=== PATIENT | male | born 1950 | race Caucasian/White ===

== ENCOUNTER 2018-03-10 10:30 | Outpatient (RCR) | payer MEDICARE, OTHER, SELFPAY ==
--- NOTE | 2017-11-14 16:23 | HP.PTEVAL ---
Patient's Visit Information CHELE ACUNA is a 67 year old M referred to Physical Therapy by MARCELINO ANAYA with a diagnosis of Vestibular Schwannoma. Date of Evaluation: 11/14/17 Physical Therapist: BARON ArechigaT, OC - Visit Plan Frequency: 3x /Week Duration: 4-6 Weeks Plan: 3x/week for 4-6 weeks initially for VOR progression at home, walking VOR, balance with narrowing LAURA and eventual foam., pregait and gait exercies focussing on narrow LARUA. - Subjective Subjective: 11/04 14 hour procedure to remove schwannoma which was pressing on the cerebellum.. Was having balance problems and listing to the right prior and having balance problems. Fine motor movements in R hand were deteriorating. Is now one week post op and needs vestibular therapy to retrain. Current symptoms include listing to the right, balance issues whcih require wh walker. R leg feels weaker, No dizzyness symptoms, no visual problems. Sleep is good. Has some muscle soreness behind R ear from surgery. helps with showering, dresses self. Currently sits on couch and watches TV. Walks every hour. HEP includes leg movements aand strength at sink. Cartridge Filler and is off until around Dec 29 ( 6 weeks planned). Used cane occasionally prior to surgery. Hobbies include fishing on boat. - Pain Behind R Ear. Pain Intensity (Out of 10): 0 Pain Intensity Range: 0, 1 Comment: worse with head turn left. - Objective LE adn UE AROM WFL, hip flexion and DF strength slightly less on R but functional. reflexes 2/3 patella and achilles. Sensation WNL to gross ligth touch in LE. Transfers are I, gait requires wh walker and wide LAURA, mod I. Without AD is wide LAURA and unsteady. VOR is challenging for patient seated eye come off target frequently, walking is very unsteady. Incision is posterior R ear, mild scar tissue and pulls with opposite cervical rot otherwise AROM c/s WNL. Steps require railing and tends to just use L but can do reciprocal with one rail. Saccades appear normal. Pursuit with eye horiz is saccadic in movement. Has nystagmus with R gaze. Romberg eo and ec 30 seconds, foam not tested today. - Balance Scores Functional Gait Assessment Score: 14 % Disability: 53.3400 - Goals Goal 1:: FGA 25/30 to diminish fall risk Goal Time Frame: 4-6 Weeks Goal 2:: Walk community without need for AD. Goal Time Frame: 4-6 Weeks Goal 3:: Steps reciprocally without UE usage. Goal Time Frame: 4-6 Weeks Goal 4:: Plan to return to fishing on a boat. Goal Time Frame: 8-12 Weeks - Rehabilitation Potential Physical Therapy Diagnosis: Balance deficits and VOR deficits from schwannoma. Rehabilitation Potential: Fair - Anticipated Interventions Patient/Client Instruction: Educate patient on: Condition, Plan of Care For the Purpose of:: To decrease pain, To improve gait and locomotor functions Therapeutic Exercise to Include: Balance training, Gait and locomotor training, Active ROM Comment: c/s AROM. VOR. Balance For the Purpose of:: To decrease level of supervision to perform tasks, To improve ability of physical actions for home/community/work/leisure Thank you for the opportunity to evaluate your patient. For Medicare and Medicare HMO plans, please review the plan of care and approve it. It will need to be FAXED BACK to us at [phone] for Medicare purposes. Please let me know if there are questions or concerns regarding this plan of care. Physician Signature: Date:
--- NOTE | 2017-12-14 11:58 | HP.PTREVAL ---
MARCELINO ANAYA, It has been my pleasure to treat CHELE ACUNA over the last 10 visits for Vestibular Schwannoma. Please see the progress note below for an update on the physical therapy plan of care! Subjective: Treatment going well, always challenging. No spinning dizzyness. Balance is improving, but not perfect. Does nto use AD at home adn no falls no stumbling. Can do stairs slowly without railing. Uses cane outside in this weather. Going to boat show tomorrow and will take cane, R leg fatigues easy. R leg reacts slower. Feels like more therapy would help. Has gone back to gym at [employer] in [place]. Does machine strength adn dumbbells for upper body with curls and presses. Does dumbell squats also. wants to get back on treadmill jog and uphill walking buit not safe yet. Objective/Function: FGA+11 adn going the right way. Gait is good but LAURA is wide creating inefficient walking pattern with much excess upper body movement. This carries over to the steps. DOING EXCELLENT WITH STILL SOME THINGS TO WORK ON. Plan Plan: 2-3x/week for 3-4 weeks for .. Work on narrowing LAURA with gait, also on steps, work on prgogressive foam exercises, Work on Single leg strength ex including lift and squat and step up/down with coordination. Also please establish safety with [facility] Goals Goal 1:: FGA 25/30 to diminish fall risk Goal Time Frame: 4-6 Weeks Goal Progress: Goal Met Goal 2:: Walk community without need for AD. Goal Time Frame: 4-6 Weeks Goal Progress: Progressing Goal 3:: Steps reciprocally without UE usage. Goal Time Frame: 4-6 Weeks Goal Progress: Progressing Goal 4:: Plan to return to fishing on a boat. Goal Time Frame: 8-12 Weeks Goal Progress: Progressing Goal 5:: Steps and gait with narrow LAURA without VC Goal Time Frame: 4-6 Weeks Goal Progress: Foam stance ec 30 sec Goal Time Frame: 4-6 Weeks Anticipated Interventions Patient/Client Instruction: Educate patient on: Condition, Plan of Care For the Purpose of:: To decrease pain, To improve gait and locomotor functions Therapeutic Exercise to Include: Balance training, Gait and locomotor training, Active ROM Comment: c/s AROM. VOR. Balance For the Purpose of:: To decrease level of supervision to perform tasks, To improve ability of physical actions for home/community/work/leisure Please do not hesitate to contact me at [phone] by phone or if you have questions or concerns regarding this new plan of care! Sincerely, Jef Coelho, DPT, OC
--- NOTE | 2018-01-09 13:01 | HP.PTREVAL_ITS ---
MARCELINO ANAYA, It has been my pleasure to treat CHELE ACUNA over the last 20 visits for Vestibular Schwannoma. Please see the progress note below for an update on the physical therapy plan of care! Subjective: Not needing AD unless on feet alot and then uses a cane. Was on feet at show for 4 hours this weekend and used cane there. Otherwise only with ice. No falls. Does not feel dangerous. Basic aDLs by self OK. Practices steps in morning with without rail but too tired at night. Back to work Dec 29 sitting all day, gets up and moves throughout day, doing full duty and doing well. Worn out initially but doing well now. No pain but R hip can get tired. Balance better now than walking around in boat last August. HEP: [employer] gym 3-4x/week and upper body. Doing foam stance at home with ec. marching and heel to toe walking with . Bosu step ups holding on every 3-4. Objective/Function: Stumbles with turns on steps, still needs UE to descend steps safely, Walking VOR sstill quite the challenge, thick foam stance is hard. Overall, LAURA is narrower with ambuilation but diverts to wide LAURA on steps and with turns. Plan Plan: 2x/week for 4 weeks... Please work on quick 180 degree and 360 degree turns, stoop and recover, VOR walking and steps. Pt to continue HEP of static balance and strengthening at [employer] Goals Goal 1:: FGA to diminish fall risk Goal Time Frame: 4-6 Weeks Goal Progress: Goal Met Goal 2:: Walk community without need for AD. Goal Time Frame: 4-6 Weeks Goal Progress: Goal Met Goal 3:: Steps reciprocally without UE usage. Goal Time Frame: 4-6 Weeks Goal Progress: Progressing Goal 4:: Plan to return to fishing on a boat. Goal Time Frame: 8-12 Weeks Goal Progress: Progressing Goal 5:: Steps and gait with narrow LAURA without VC with head turns and 180 degree turns. Goal Time Frame: 4-6 Weeks Goal Progress: NEW GOAL Goal 6:: FGA to minimize fall risk. Goal Time Frame: 4-6 Weeks Goal Progress: NEW GOAL. Anticipated Interventions Patient/Client Instruction: Educate patient on: Condition, Plan of Care For the Purpose of:: To decrease pain, To improve gait and locomotor functions Therapeutic Exercise to Include: Balance training, Gait and locomotor training, Active ROM Comment: c/s AROM. VOR. Balance For the Purpose of:: To decrease level of supervision to perform tasks, To improve ability of physical actions for home/community/work/leisure Please do not hesitate to contact me at [phone] by phone or Fax: if you have questions or concerns regarding this new plan of care! Sincerely, Jef Coelho, BARONT, OC
--- NOTE | 2018-02-10 12:28 | HP.PTREVAL_ITS ---
MARCELINO ANAYA, It has been my pleasure to treat CHELE ACUNA over the last 28 visits for Vestibular Schwannoma. Please see the progress note below for an update on the physical therapy plan of care! Subjective: Goling the right way. Walking straighter without a wide gait. Turns are easier and safer. Steps are safer. Activities are normal. Walking dogs is limited distance to four blocks, would like to go a mile but gets tired. R LB can ache if walks too far. Hasn't started fishing due to weather. Thinks he could. Walking treadmill and varies elevation, needs to hang on to sides most of time. R LE fine motor is still challenging. Still slow to start. No dizzyness. Walks with peg legs at times though. HEP: regularly with walking VOR, balance ec. Strengthening at [employer] 3x/week. No scheduled f/u with neurologist any time soon. Objective/Function: FGA improving slowly but still one point from my goal. Steps are reciprocal without a rail. R LE still appears slightly functionally weak as he scratches toe on ground with walking 1x today and ecc lowering on steps is harder on R. VOR walking is improving but wobbly. Wide LAURA with gait as default persists but corrects well with VC. OVERALL SLOW IMPROVEMENT. CONTINUED TREATMENT STILL MEDICALLY APPROPRIATE AND NECESSARY FOR PROGRESSING TO IRREGULAR SURFACES, PROGRESSING vor TO MAKE AMBULATING ON BOAT FOR FISHING SAFER AND MORE FUNCTRIONAL STRENGTH PROGRESSION OF R LE. Plan Plan: 1x/week for 4 weeks for VOR walking, outdoor walking, functional carrying bending, lunging strength. Goals Goal 1:: FGA 25/ to diminish fall risk Goal Time Frame: 4-6 Weeks Goal Progress: Goal Met Goal 2:: Walk community without need for AD. Goal Time Frame: 4-6 Weeks Goal Progress: Goal Met Goal 3:: Steps reciprocally without UE usage. Goal Time Frame: 4-6 Weeks Goal Progress: Goal Met Goal 4:: Plan to return to fishing on a boat. Goal Time Frame: 8-12 Weeks Goal Progress: Progressing Goal 5:: Steps and gait with narrow LAURA without VC with head turns and 180 degree turns. Goal Time Frame: 4-6 Weeks Goal Progress: Progressing Goal 6:: FGA to minimize fall risk. Goal Time Frame: 4-6 Weeks Goal Progress: Progressing Anticipated Interventions Patient/Client Instruction: Educate patient on: Condition, Plan of Care For the Purpose of:: To decrease pain, To improve gait and locomotor functions Therapeutic Exercise to Include: Balance training, Gait and locomotor training, Active ROM Comment: c/s AROM. VOR. Balance For the Purpose of:: To decrease level of supervision to perform tasks, To improve ability of physical actions for home/community/work/leisure Please do not hesitate to contact me at [phone] by phone or Fax: if you have questions or concerns regarding this new plan of care! Sincerely, Jef Coelho, DPT, OC
--- NOTE | 2018-03-10 10:50 | HP.PTDCSUM ---
HP - PT D/C Summary It has been my pleasure to treat CHELE ACUNA under orders from MARCELINO ANAYA, for the diagnosis of Vestibular Schwannoma for a total of 32 visit(s). Discharge Date: 03/10/18 Please see the following information for a summary of their discharge status. - Subjective Subjective: Pulled calf muscle on tuesday, went to gym and was sore that afternoon. Balance improving slowly.. May go out on boat tomorrow and is confident that he could. HEP going well. Ready to be done with PT. Nothing scheduled with doctor, will have MRI in March. - Pain Behind R Ear. Pain Intensity (Out of 10): 0 - Overall Improvement % Improvement: 85 - Objective Objective/Function: FGA +1. LAURA still defaults to wide 50% of time but improved from 100% 4 weeks ago. Turns quickly without LOB. Steps are reciprocal and no rail when focussed on narrow LAURA but needs rail if LAURA gets too wide(too much lateral weight shift) Educated pt on this for safety. - Goals Goal 1:: FGA to diminish fall risk Goal Progress: Goal Met Goal 2:: Walk community without need for AD. Goal Progress: Goal Met Goal 3:: Steps reciprocally without UE usage. Goal Progress: Goal Met Goal 4:: Plan to return to fishing on a boat. Goal Progress: tomorrow and confident Goal 5:: Steps and gait with narrow LAURA without VC with head turns and 180 degree turns. Goal Progress: Progressing Goal 6:: FGA to minimize fall risk. Goal Progress: Goal Met - Plan Plan: D/C, pt ready to be done. - D/C Information Discharge Comments: Pt ready to be done and continue on his own. will see doctor next month and call if problems. If there are questions or concerns regarding this patient's physical therapy, please feel free to call me at [phone]. Thank you for the referral of this patient. Sincerely, Jef Coelho, DPT, OC
== END 2018-03-10 19:00 | disposition home or self-care (01) ==
LOC: PT 10:30
PROVIDERS: Family Provider Family Medicine; PCP Family Medicine
DX: D33.3 Benign neoplasm of cranial nerves (principal)
CPT/HCPCS: 97110; 97162; 97530; G8978; G8979

== ENCOUNTER → 2018-06-16 11:10 | Outpatient (CLI) | payer MEDICARE, OTHER, SELFPAY ==
[2018-06-16 12:42] LABS: AST(SGOT) 26 U/L (15-37); Alanine Aminotransfer ALT/SGPT 19 U/L (16-61); Albumin, Serum 4.2 g/dL (3.2-5.0); Alkaline Phosphatase 74 U/L (45-117); Bilirubin, Direct 0.29 mg/dL (0.00-0.30); Cholesterol 139 mg/dL (200); Globulin 3.8 g/dL (2.2-4.2); High Density Lipoprotein 64 mg/dL; Triglycerides 66 mg/dL; Very Low Density Lipoprotein 13 mg/dL (5-40)
== END ==
PROVIDERS: Family Provider Family Medicine; PCP Family Medicine; Visit Provider Internal Medicine Cardiovascular Disease
DX: E78.5 Hyperlipidemia, unspecified (principal); Z79.899 Other long term (current) drug therapy
CPT/HCPCS: 36415; 80061; 80076

== ENCOUNTER → 2018-08-28 06:52 | Outpatient (CLI) | payer MEDICARE, OTHER, SELFPAY ==
--- NOTE | 2018-08-28 09:48 | STRESSREP ---
Stress Test Report Pharmacologic myocardial perfusion stress test. 68-year-old male with a history of coronary artery disease. Stress protocol: Resting EKG demonstrates sinus bradycardia with a rate of 54 bpm normal intervals and noted resting blood pressure is 152/84 mmHg. 0.4 mg regadenoson was infused per usual protocol followed by rapid intravenous and flush injection continuous court recording monitor was performed the maximum heart rate attained was 71 bpm which was 47% maximum predicted heart rate maximum workload was 1 metabolic equivalent. At rest there were no ST or T wave changes noted suggest abnormal flow reserve at peak infusion no ST or T wave changes were noted suggest abnormal flow reserve resting blood pressure 152/84 with a final blood pressure 132/70 mmHg. Myocardial perfusion protocol. 11.4 mCi of technetium 99m sestamibi was injected at rest 0.4 mg regadenoson was infused per usual protocol peak infusion 33.1 mCi of technetium 99m sestamibi was injected stress images were obtained stress and rest images were reconstructed and compared in the short axis vertical long horizontal long axis. Gated images were also obtained next Perfusion SPECT analysis: Review of the stress images demonstrate normal uptake of tracer noted in all areas of myocardium. The resting images similarly demonstrate normal uptake of tracer noted in all areas of myocardium no areas of reversibility are noted suggest ischemia no previous infarct is noted. Gated SPECT analysis: The gated ejection fraction is 51%. Conclusion: Normal pharmacologic myocardial perfusion stress test. Preserved ejection fraction.
== END ==
PROVIDERS: Family Provider Family Medicine; PCP Family Medicine; Referring Provider Internal Medicine Cardiovascular Disease; Visit Provider Internal Medicine Cardiovascular Disease
DX: Z98.61 Coronary angioplasty status (principal)
CPT/HCPCS: 78452; 93017; A9500; A4216; J2785

== ENCOUNTER → 2019-02-01 10:05 | Outpatient (CLI) | payer MEDICARE, OTHER, SELFPAY ==
[2018-07-20 15:42] VITALS: BMI 26.4
[2019-02-01 12:34] LABS: Anion Gap 9 (5-15); BUN 14 mg/dL (7-18); Calcium,Total 8.6 mg/dL (8.5-10.1); Chloride 105 mmol/L (98-107); Creatinine, Serum 0.82 mg/dL (0.70-1.30); EST Glomerular Filtration Rate 98 mL/min (>60); Est Glom Filt Rate - Afr Amer 119 mL/min (>60); Glucose 101 mg/dL (74-106); Potassium 4.7 mmol/L (3.5-5.1); Sodium Level 137 mmol/L (136-145)
== END ==
PROVIDERS: Family Provider Family Medicine; PCP Family Medicine; Referring Provider Family Medicine; Visit Provider Family Medicine
DX: I25.10 Atherosclerotic heart disease of native coronary artery without angina pectoris (principal)
CPT/HCPCS: 36415; 80048

== ENCOUNTER → 2019-07-18 | Outpatient (CLI) | payer MEDICARE, OTHER, SELFPAY ==
[2018-07-20 15:42] VITALS: BMI 26.4
[2019-07-18 10:43] LABS: ALB/GLOB Ratio 1.1 RATIO (0.9-2.4); AST(SGOT) 22 U/L (15-37); Alanine Aminotransfer ALT/SGPT 19 U/L (16-61); Alkaline Phosphatase 69 U/L (45-117); Anion Gap 5 (5-15); BUN 14 mg/dL (7-18); BUN/Creat Ratio 15.6 RATIO (10-20); Calcium,Total 8.6 mg/dL (8.5-10.1); Chloride 107 mmol/L (98-107); Cholesterol 146 mg/dL (200); EST Glomerular Filtration Rate 89 mL/min (>60); Est Glom Filt Rate - Afr Amer 108 mL/min (>60); Globulin 3.5 g/dL (2.2-4.2); Glucose 101 mg/dL (74-106); High Density Lipoprotein 73 mg/dL; Potassium 4.4 mmol/L (3.5-5.1); Protein, Total 7.5 g/dL (6.4-8.2); Sodium Level 139 mmol/L (136-145); Triglycerides 45 mg/dL; Very Low Density Lipoprotein 9 mg/dL (5-40)
== END | disposition home or self-care (01) ==
PROVIDERS: Family Provider Family Medicine; PCP Family Medicine; Referring Provider Family Medicine; Visit Provider Family Medicine
DX: I25.10 Atherosclerotic heart disease of native coronary artery without angina pectoris (principal)
CPT/HCPCS: 36415; 80053; 80061

== ENCOUNTER → 2020-07-29 09:35 | Outpatient (CLI) | payer MEDICARE, OTHER, SELFPAY ==
[2020-07-29 09:13] VITALS: BMI 26.3
[2020-07-29 11:02] LABS: AST(SGOT) 26 U/L (15-37); Alanine Aminotransfer ALT/SGPT 19 U/L (16-61); Albumin, Serum 4.3 g/dL (3.2-5.0); Alkaline Phosphatase 72 U/L (45-117); Bilirubin, Direct 0.29 mg/dL (0.00-0.30); Cholesterol 156 mg/dL (200); Globulin 3.7 g/dL (2.2-4.2); High Density Lipoprotein 64 mg/dL; Triglycerides 74 mg/dL; Very Low Density Lipoprotein 15 mg/dL (5-40)
== END ==
PROVIDERS: PCP Family Medicine; Referring Provider Internal Medicine Cardiovascular Disease; Visit Provider Internal Medicine Cardiovascular Disease
DX: E78.00 Pure hypercholesterolemia, unspecified (principal)
CPT/HCPCS: 36415; 80061; 80076

== ENCOUNTER → 2021-09-01 11:03 | Outpatient (CLI) | payer MEDICARE, OTHER, SELFPAY ==
[2021-09-01 11:56] LABS: AST(SGOT) 23 U/L (15-37); Alanine Aminotransfer ALT/SGPT 22 U/L (16-61); Albumin, Serum 4.3 g/dL (3.2-5.0); Alkaline Phosphatase 66 U/L (45-117); Bilirubin, Direct 0.37 mg/dL (0.00-0.30); Cholesterol 159 mg/dL (200); High Density Lipoprotein 68 mg/dL; Protein, Total 8.3 g/dL (6.4-8.2); Triglycerides 74 mg/dL; Very Low Density Lipoprotein 15 mg/dL (5-40)
== END ==
PROVIDERS: PCP Family Medicine; Referring Provider Internal Medicine Cardiovascular Disease; Visit Provider Internal Medicine Cardiovascular Disease
DX: E78.00 Pure hypercholesterolemia, unspecified (principal)
CPT/HCPCS: 36415; 80061; 80076

== ENCOUNTER → 2022-08-28 | Outpatient (CLI) | payer MEDICARE, OTHER, SELFPAY ==
[2022-08-28 12:16] LABS: AST(SGOT) 26 U/L (15-37); Alanine Aminotransfer ALT/SGPT 24 U/L (16-61); Albumin, Serum 3.9 g/dL (3.2-5.0); Alkaline Phosphatase 65 U/L (45-117); Bilirubin, Direct 0.27 mg/dL (0.00-0.30); Cholesterol 149 mg/dL (200); Globulin 3.7 g/dL (2.2-4.2); High Density Lipoprotein 63 mg/dL; Protein, Total 7.6 g/dL (6.4-8.2); Triglycerides 75 mg/dL; Very Low Density Lipoprotein 15 mg/dL (5-40)
== END | disposition home or self-care (01) ==
PROVIDERS: PCP Family Medicine; Visit Provider Internal Medicine Cardiovascular Disease
DX: E78.00 Pure hypercholesterolemia, unspecified (principal)
CPT/HCPCS: 36415; 80061; 80076

== ENCOUNTER → 2022-09-09 | Outpatient (CLI) | payer MEDICARE, OTHER, SELFPAY ==
--- NOTE | 2022-09-09 06:29 | ECHOD_ITS ---
Reason For Study: CAD/ASHD Procedure This was a 2D Doppler, Color Flow transthoracic echocardiogram. Exam performed in department. DR. Jackson notified of new onset atrial flutter by Pili RAMIREZ. Left Ventricle Normal LV size. Left ventricular systolic function is lower limits of normal. The estimated ejection fraction is 50 %. No regional wall motion abnormalities noted. Right Ventricle Mildly dilated right ventricle. Normal systolic function. Atria The left atrium is mildly enlarged. The right atrium is mildly enlarged. Bubble contrast study negative for right to left interatrial shunt. Mitral Valve Normal mitral valve. Mild (1+) eccentric mitral valve insufficiency. Tricuspid Valve Normal tricuspid valve. Aortic Valve Trisinus/trileaflet aortic valve. Pulmonic Valve Normal pulmonic valve. Great Vessels Normal aortic root. The pulmonary artery is normal size. Normal inferior vena cava. Pericardium/Pleural No pericardial effusion. Medication Performed a rapid injection of agitated mix of 9 cc saline and 1cc air to assess for atrial septal defect. MMode/2D Measurements & Calculations LVIDd: 5.5 cm IVSd: 1.1 cm Ao root diam: 3.5 cm LVIDs: 4.4 cm LVPWd: 1.0 cm RVDd: 4.7 cm FS: 19.9 % LAV(MOD-bp): 94.7 ml LA A4 area: 26.7 cm2 LA dimension(2D): 5.0 cm LAV(MOD-bp) Indexed: 45.5 ml/m2 LAV(MOD-sp2): 92.1 ml LAV(MOD-sp4): 92.0 ml RA A4 area: 24.9 cm2 Time Measurements MV dec time: 0.15 sec Doppler Measurements & Calculations MV E max paco: 63.7 cm/sec PA V2 max: 78.7 cm/sec MV A max paco: 50.2 cm/sec MV dec slope: 423.2 cm/sec2 PA V2 mean: 58.3 cm/sec MV E/A: 1.3 TR max paco: 219.2 cm/sec TR max P.2 mmHg ECHO/Echo Complete Interpretation Summary Normal LV size. Left ventricular systolic function is lower limits of normal. The estimated ejection fraction is 50 %. The left atrium is mildly enlarged. Mildly dilated right ventricle. Ordering Physician: Brennan Jackson Referring Physician: Jef Anthony Performed By: Dulce Maria Cuevas, FLORIAN, RVT
--- NOTE | 2022-09-09 13:19 | STRESSREP ---
Stress Test Report Pharmacologic myocardial perfusion stress test. 72-year-old man with a history of known coronary artery disease previous inferior myocardial infarction. Resting EKG demonstrates atrial flutter with a rate of 74 bpm normal intervals are noted resting blood pressure is 142/70 mmHg. 0.4 mg of regadenoson was infused per usual protocol followed by rapid intravenous saline flush injection continuous EKG monitoring was performed. The maximum heart rate attained was 100 bpm which was 68% of max impacted heart rate the maximum workload was 1 metabolic equivalent. At rest there were no ST or T wave changes noted suggest ischemia and at peak exercise and infusion nonspecific ST changes were noted. The final blood pressure was 142/70. Myocardial perfusion protocol. 11.8 mCi of technetium 99m sestamibi was injected at rest. 0.4 mg of regadenoson was infused per usual protocol. At peak infusion 34.5 mCi of technetium 99m sestamibi was injected stress images were obtained stress and rest images were reconstructed and compared in the short axis vertical long horizontal long axis. Gated images were also obtained to Perfusion SPECT analysis: Review of the stress images demonstrate normal uptake of tracer noted in all areas of myocardium except for the apex with a medium size defect. There is also a defect noted in the basal to mid inferior wall. This pattern is present on the resting images as well as suggesting a previous basal inferior infarct and apical infarct. Minimal wyatt-infarct ischemia is noted. Gated SPECT analysis: The gated ejection fraction is 48%. 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 Atrial flutter.
== END | disposition home or self-care (01) ==
LOC: CVS 06:29
PROVIDERS: PCP Family Medicine; Referring Provider Internal Medicine Cardiovascular Disease; Visit Provider Internal Medicine Cardiovascular Disease
DX: I25.10 Atherosclerotic heart disease of native coronary artery without angina pectoris (principal); Z95.5 Presence of coronary angioplasty implant and graft
CPT/HCPCS: 78452; 93017; 93306; A9500; A4216; J2785

== ENCOUNTER → 2023-05-27 | Outpatient (CLI) | payer MEDICARE, OTHER, SELFPAY ==
--- NOTE | 2023-05-27 10:50 | ECHOD_ITS ---
Reason For Study: ASHD/CAD Procedure This was a 2D Doppler, Color Flow transthoracic echocardiogram. Exam performed in department. Left Ventricle Normal LV size. The left ventricular ejection fraction is 40 %. There is mild to moderate global hypokinesis of the left ventricle. Right Ventricle Normal RV size. Normal systolic function. Atria The left atrium is moderately enlarged. The right atrium is moderately enlarged. Mitral Valve Normal mitral valve. Mild (1+) eccentric mitral valve insufficiency. Tricuspid Valve Normal tricuspid valve. Mild (1+) tricuspid valve insufficiency. Pulmonary artery systolic pressure is 36 mmHg. Aortic Valve Trisinus/trileaflet aortic valve. Mild (1+) eccentric aortic valve insufficiency. Pulmonic Valve Normal pulmonic valve. Great Vessels Normal aortic root. The pulmonary artery is normal size. Normal inferior vena cava. Pericardium/Pleural No pericardial effusion. MMode/2D Measurements & Calculations LVIDd: 6.0 cm IVSd: 1.2 cm Ao root diam: 3.5 cm LVIDs: 5.1 cm LVPWd: 1.0 cm FS: 15.9 % LAV(MOD-bp): 131.1 ml LVAd ap4: 55.0 cm2 LVAd ap2: 49.6 cm2 LAV(MOD-bp) Indexed: 64.7 ml/m2 LVLd ap4: 9.7 cm LVLd ap2: 9.9 cm LAV(MOD-sp2): 147.8 ml EDV(MOD-sp4): 250.7 ml EDV(MOD-sp2): 206.7 ml LAV(MOD-sp4): 107.7 ml EDV(sp4-el): 264.2 ml EDV(sp2-el): 210.1 ml LVAs ap4: 39.9 cm2 LVAs ap2: 37.8 cm2 LVLs ap4: 8.6 cm LVLs ap2: 9.3 cm ESV(MOD-sp4): 152.4 ml ESV(MOD-sp2): 130.9 ml ESV(sp4-el): 157.4 ml ESV(sp2-el): 131.2 ml EF(MOD-sp4): 39.2 % EF(MOD-sp2): 36.7 % EF(sp4-el): 40.4 % SV(MOD-sp4): 98.3 ml SV(MOD-sp2): 75.8 ml SV(sp4-el): 106.8 ml LA dimension(2D): 5.1 cm LA A4 area: 29.5 cm2 RA A4 area: 28.0 cm2 Time Measurements MV dec time: 0.23 sec Doppler Measurements & Calculations MV E max david: 79.2 cm/sec Lat Peak E' David: 10.2 cm/sec Med Peak E' David: 4.2 cm/sec MV A max david: 35.9 cm/sec E/E' lat: 7.8 E/E' med: 18.9 MV E/A: 2.2 MV V2 max: 74.0 cm/sec MV dec slope: 340.4 cm/sec2 Ao V2 max: 125.7 cm/sec MV max P.2 mmHg Ao max P.3 mmHg MV V2 mean: 44.3 cm/sec Ao V2 mean: 87.3 cm/sec MV mean P.89 mmHg Ao mean P.5 mmHg MV V2 VTI: 24.3 cm Ao V2 VTI: 29.2 cm AV (velocity ratio): 0.70 AI max david: 411.3 cm/sec LV V1 max: 98.1 cm/sec MR max david: 512.8 cm/sec AI max P.7 mmHg LV V1 max P.8 mmHg MR max P.2 mmHg AI dec slope: 240.9 cm/sec2 LV V1 mean P.1 mmHg MR mean david: 412.3 cm/sec AI P1/2t: 500.1 msec LV V1 mean: 69.2 cm/sec MR mean P.4 mmHg LV V1 VTI: 20.4 cm MR VTI: 189.9 cm TR max david: 285.3 cm/sec TR max P.6 mmHg ECHO/Echo Complete Interpretation Summary Normal LV size. The left ventricular ejection fraction is 40 %. There is mild to moderate global hypokinesis of the left ventricle. Mild (1+) eccentric mitral valve insufficiency. Pulmonary artery systolic pressure is 36 mmHg. Mild (1+) eccentric aortic valve insufficiency. Compared to previous study, the left ventricular systolic function has worsened .. Ordering Physician: Brennan Jackson Referring Physician: Jef Anthony Performed By: Dulce Maria Cuevas, FLORIAN, RVT
== END | disposition home or self-care (01) ==
LOC: CVS 10:46
PROVIDERS: PCP Family Medicine; Referring Provider Internal Medicine Cardiovascular Disease; Visit Provider Internal Medicine Cardiovascular Disease
DX: I48.92 Unspecified atrial flutter (principal); I25.10 Atherosclerotic heart disease of native coronary artery without angina pectoris
CPT/HCPCS: 93225; 93226; 93306

== ENCOUNTER → 2023-06-13 | Outpatient (CLI) | payer MEDICARE, OTHER, SELFPAY ==
--- NOTE | 2023-06-13 10:19 | RAD_ITS ---
INDICATION: left heart cath EXAMINATION/TECHNIQUE: X-RAY - XR Chest 2 Views COMPARISON: None FINDINGS: LINES/DEVICES: None. LUNGS: No focal consolidations are noted. There is mild prominence of the lung interstitium diffusely. There is a small left pleural effusion. MEDIASTINUM AND CARDIOVASCULAR STRUCTURES: Cardiac silhouette not enlarged. Central airways and mediastinal contour are unremarkable. BONES AND SOFT TISSUES: Unremarkable. RAD/Chest PA and Lateral IMPRESSION: Mildly prominent interstitial lung markings without focal consolidation. Small left pleural effusion. Electronically Signed: Prudencio Luciano, at 10:43 EDT ,
== END | disposition home or self-care (01) ==
LOC: RAD 10:19
PROVIDERS: PCP Family Medicine; Referring Provider Internal Medicine Cardiovascular Disease; Visit Provider Internal Medicine Cardiovascular Disease
DX: I25.10 Atherosclerotic heart disease of native coronary artery without angina pectoris (principal)
CPT/HCPCS: 71046

== ENCOUNTER → 2023-06-13 | Day surgery (SDC) | payer MEDICARE, OTHER, SELFPAY ==
--- NOTE | 2023-06-03 15:33 | PCM.HP.BLA ---
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 He has a history of previous inferior myocardial infarction with angioplasty and stenting of the right coronary artery. He did have residual disease noted in the left anterior descending artery and circumflex artery with a significant calcification. As you know he underwent recent posterior fossa brain tumor in October 2017 successfully with no major problems. He underwent stress testing in 2018 with no evidence of ischemia. His last echocardiogram was in 2012 demonstrating an ejection fraction of 65%. He did undergo a routine stress test after his last OV and was noted to have paroxysmal atrial flutter. His EF at that time was 50%. He was started on Eliquis. He was not aware of this and has not had any recurrence that he is aware of. He does not have any chest discomfort/heaviness/tightness. His exercise tolerance is stable for his age. He does not have any worsening symptoms of shortness of breath. He denies any PND. He does not have any orthopnea. He does not have any symptoms of congestive heart failure. He does not have any palpitations that he is aware of. He does not have any lightheadedness or dizziness. He does not have any near-syncope or syncope. He does not have any lower extremity edema. He does not have any symptoms of claudication. 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) Surgical History History of brain surgery (10/2017) History of coronary artery stent placement (09/28/12) Family History Father CAD (coronary artery disease)Mother CAD (coronary artery disease) Social History Smoking Status: Former smoker how long ago did patient quit smokin alcohol intake: current alcohol intake frequency: a few times a week substance use type: does not use caffeine: Yes Type: coffee Number of servings: 1 ROS Const Const: Positive for fatigue (Increased over the last year); Negative for weakness, headache(s), frequent falls, difficulty sleeping or excessive sweating Eyes Eyes: Negative for loss of peripheral vision, transient loss of vision, blurry vision, double vision or tunnel vision ENT ENT: Negative for headache(s), dizziness, Nosebleed/epistaxis or balance problems Cardio Chest Pain: No Palpitations: No Edema: None Muscle aches with walking: None Resp Respiratory: Negative for SOB with activity, SOB at rest, SOB orthopnea\SOB lying down, Cough or paroxysmal nocturnal dyspnea GI GI: Negative nausea, vomiting, heartburn or black,tarry stools : Negative for hematuria Musc Musc: Negative for muscle aches/ myalgia, muscle weakness, joint pain or balance problems Skin Skin: Negative non-healing lesions, rash or unusual bruising Neuro Neuro: Negative for dizziness, lightheadedness, near syncope, syncope, frequent falls, headache(s), weakness, blurry vision, double vision or lack of coordination Gibran Hematologic/Lymphatic: Negative for easy bleeding or easy bruising Endo Endo: Positive for fatigue (Increased over the last year); Negative for excessive sweating or increased thirst/drinking Psych Psych: Negative for anxiety or depression Allergy Allergy/Immunology: Negative for hives and Negative for rash Cardiology Exam Const Appearance: cooperative, healthy appearing, comfortable, no acute distress and well developed Orientation: alert, awake and oriented x3 Head Head: normal to inspection Ears: hearing grossly normal bilaterally Nose: external nose normal Face and Sinus: face symmetric Mouth: oral mucosae normal, lip normal and moist mucous membranes Eyes General: appearance normal, both eyes and all related structures Eyelids: eyelids normal Conjunctivae: conjunctivae normal Pupils: PERRL EOM: EOM intact bilaterally Neck Neck: normal visual inspection and trachea midline; Negative no JVD Carotids: Negative bruit Chest Chest inspection: normal inspection of the chest Auscultation: Bilateral: Clear to Auscultation Cardio Palpation: normal PMI Rate: regular rate Rhythm: regular rhythm Heart sounds: S1 normal and S2 normal; Negative rub, gallop or murmur GI GI: soft, no hepatosplenomegaly and bowel sounds present Neuro General: patient alert, patient awake, patient oriented x3 and CN's II-XI intact bilaterally Extremities Pulses: Normal: Right Posterior Tibial Pulse, Left Posterior Tibial Pulse, Right Radial Pulse and Left Radial Pulse Lower Extremity Edema: None: Bilateral Psych Psychological: normal affect Supplemental Info Supplemental Information Echocardiogram 05/27/2023: Interpretation Summary Normal LV size. The left ventricular ejection fraction is 40 %. There is mild to moderate global hypokinesis of the left ventricle. Mild (1+) eccentric mitral valve insufficiency. Pulmonary artery systolic pressure is 36 mmHg. Mild (1+) eccentric aortic valve insufficiency. Compared to previous study, the left ventricular systolic function has worsened. Echocardiogram 08/2022: Normal LV size. Left ventricular systolic function is lower limits of normal. The estimated ejection fraction is 50 %. The left atrium is mildly enlarged. Mildly dilated right ventricle. Pharmacologic myocardial perfusion stress test 08/2022: Perfusion SPECT analysis: Review of the stress images demonstrate normal uptake of tracer noted in all areas of myocardium except for the apex with a medium size defect.? There is also a defect noted in the basal to mid inferior wall.? This pattern is present on the resting images as well as suggesting a previous basal inferior infarct and apical infarct.? Minimal wyatt-infarct ischemia is noted. Gated SPECT analysis: The gated ejection fraction is 48%. 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 Atrial flutter. Pharmacologic myocardial perfusion stress test 08/28/2018 Perfusion SPECT analysis: Review of the stress images demonstrate normal uptake of tracer noted in all areas of myocardium.? The resting images similarly demonstrate normal uptake of tracer noted in all areas of myocardium no areas of reversibility are noted suggest ischemia no previous infarct is noted. Gated SPECT analysis: The gated ejection fraction is 51%. Conclusion: Normal pharmacologic myocardial perfusion stress test. Preserved ejection fraction.? Assessment and Plan Assessment and Plan (1) New onset atrial flutter: Status: Acute Plan: He did have atrial flutter but it appears that he is back in sinus rhythm at this time. His EKG from 05/17/2023 demonstrated sinus rhythm with a rate of 62 bpm and occasional ectopic ventricular beats. His most recent echocardiogram demonstrated a decreased ejection fraction of 40%. His most recent event monitor demonstrated arrhythmias including nonsustained VT and SVT. Will proceed with a cardiac catheterization to further assess this. Depending on results, further recommendations will be made. (2) History of coronary artery stent placement: Status: Resolved Comment: [id number] RCA w/ 4 x 20 mm Integrity Stent and PRAVIN-Distal RCA w/ 3.5 x 16 mm Integrity Stent 09/28/2012 Plan: He does have a history of coronary artery disease status post previous angioplasty and stenting. He did undergo stress testing as you remember any August 2022 where there was evidence of previous basal inferoapical infarct and mild cardiomyopathy. His most recent echocardiogram demonstrated a decreased ejection fraction of 40%. His most recent event monitor demonstrated arrhythmias including nonsustained VT and SVT. Will proceed with a cardiac catheterization to further assess this. Depending on results, further recommendations will be made.
[2023-06-13 10:57] LABS: Absolute Lymphocyte Count 1.58 X10^3/uL (0.83-4.51); Absolute Neutrophil Count 7.1 X10^3/uL (2.0-7.7); Basophil# 0.07 X10^3/uL; Basophil% 0.7 % (0-1); Eosinophil# 0.52 X10^3/uL; Eosinophils% 4.9 % (0-5); Hematocrit 35.6 % (40-54); Lymphocyte # 1.58 X10^3/ul (0.83-4.51); Mean Corp Hgb Conc 30.9 g/dL (32-36); Mean Corpuscular Hgb 29.3 pg (27.0-32.0); Mean Corpuscular Volume 94.7 fL (80-94); Mean Platelet Vol. 11.8 fl (6.2-12.0); Monocyte# 1.21 X10^3/uL; Monocyte% 11.5 % (0-10); NRBC Flagged by Analyzer 0 % (0-5); Neutrophil # 7.12 X10^3/uL (2.7-7.7); Neutrophil % 67.3 % (47-70); Platelet Count 408 K/mm3 (150-450); RBC Distribution Width CV 14.8 % (11.6-14.6); RBC Distribution Width SD 51.2 fl (35.1-43.9); Red Blood Count 3.76 M/mm3 (4.6-6.2); White Blood Count 10.6 K/mm3 (4.4-11.0)
[2023-06-13 11:02] LABS: International Normalized Ratio 1.5
[2023-06-13 11:03] LABS: Partial Thromboplast Time 42.7 Seconds (24.1-36.2)
[2023-06-13 11:16] LABS: Anion Gap 5 (5-15); BUN 43 mg/dL (7-18); BUN/Creat Ratio 11.1 RATIO (10-20); Calcium,Total 8.2 mg/dL (8.5-10.1); Chloride 111 mmol/L (98-107); Creatinine, Serum 3.87 mg/dL (0.70-1.30); EST Glomerular Filtration Rate 16 mL/min (>60); Est Glom Filt Rate - Afr Amer 20 mL/min (>60); Glucose 99 mg/dL (74-106); Potassium 4.9 mmol/L (3.5-5.1); Sodium Level 139 mmol/L (136-145)
--- OUTSIDE RECORDS SUMMARY | 2023-07-12 12:21 | XMS RPT_ITS | CCD ---
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 Automatic Name Role Phone Arline RAMIREZ, Cathy Perez Unavailable Unavailable AnthonyRimmaJuana Y Unavailable Medications Completed/Discontinued Medications Medication Drug Class(es) Dates Sig (Normalized) Sig (Original) aspirin 81 mg oral tablet (4 sources) Nonsteroidal Anti-inflammatory Drug Start: 10-13-2012 take 1 tablet by mouth once daily ASPIRIN 81 MG TABS One tablet by mouth daily ASPIRIN [id number] Brennan Jackson MD Problems Active Problems Problem Classification Problem Date Documented Da te Episodic/Chronic Acute myocardial infarction (2 sources) 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; Translations: [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] Onset: 10-10-2012 10-10-2012 Chronic Cardiac dysrhythmias (2 sources) Ventricular premature beats; Translations: [Ventricular premature depolarization] Onset: 10-02-2012 10-02-2012 Chronic Coronary atherosclerosis and other heart disease (4 sources) Coronary arteriosclerosis; Translations: [Atherosclerotic heart disease of [place] coronary artery without angina pectoris] Onset: 10-10-2012 10-10-2012 Chronic Disorders of lipid metabolism (6 sources) Hyperlipidemia; Translations: [Hyperlipidemia, unspecified] Onset: 10-10-2012 Resolved: 05-26-2015 05-26-2015 Chronic Other circulatory disease (2 sources) Peripheral arterial occlusive disease; Translations: [Other disorders of arteries, arterioles and capillaries in diseases classified elsewhere] Onset: 10-02-2015 10-02-2015 Chronic Unclassified (2 sources) History of clinical finding in subject; Translations: [Personal history of nicotine dependence] Onset: 10-02-2015 10-02-2015 Unclassified (2 sources) Percutaneous transluminal coronary angioplasty ; Translations: [Coronary angioplasty status] Onset: 10-10-2012 10-10-2012 Unclassified (2 sources) Preoperative cardiovascular examination ; Translations: [Encounter for preprocedural cardiovascular examination] Onset: 10-13-2017 10-13-2017 Past or Other Problems Problem Classification Problem Date Documented Da te Episodic/Chronic Other aftercare (2 sources) Other intermodal dispatcher (current) drug therapy; Translations: [Other usp (current) drug therapy] Onset: 10-25-2012 05-26-2015 Episodic Unclassified (2 sources) Long-term drug therapy; Translations: [Long-term (current) use of other medications] Onset: 10-25-2012 10-25-2012 Unclassified (4 sources) Screening for disorder ; Translations: [Encounter for screening for other disorder] Onset: 10-02-2015 Resolved: 11-04-2016 10-02-2015 Results Test Name Value Interpretation Reference Range Facil ity Vital Signs Date Time Vital Sign Value Performing Clinician Maile philippe 10-13-2017 09:57-0500 BMI (Body Mass Index) 25.85 kg/m2 [facility] Work Phone: 10-13-2017 09:57-0500 BP Diastolic 60 mm[Hg] [facility] Work Phone: 10-13-2017 09:57-0500 BP Systolic 120 mm[Hg] [facility] Work Phone: 10-13-2017 09:57-0500 Height 182.88 cm [facility] Work Phone: 10-13-2017 09:57-0500 Pulse (Heart Rate) 60 /min [facility] Work Phone: 10-13-2017 09:57-0500 Respiratory Rate 20 /min [facility] Work Phone: 10-13-2017 09:57-0500 Weight 86.46 kg [facility] Work Phone: 11-04-2016 15:06-0500 BSA (Body Surface Area) 2.07 m2 [facility] Work Phone: Procedures Date Procedure Procedure Detail Performing Clinician Start: 10-13-2017 End: 10-13-2017 Ecg routine ecg w/least 12 lds w/i&r Brennan Jackson MD Start: 05-02-2017 End: 05-02-2017 *Hepatic Function Panel Joey Leonard Start: 05-02-2017 End: 05-02-2017 Lipid 1996 panel - Serum or Plasma Brennan Jackson MD Start: 11-04-2016 End: 11-04-2016 XOCHITL Jackson MD Start: 11-04-2016 End: 11-04-2016 Follow Up Appt 6 months Joey Leonard Start: 10-04-2016 End: 11-05-2016 *Hepatic Function Panel Joey Leonard Start: 10-04-2016 End: 11-05-2016 Lipid 1996 panel - Serum or Plasma Brennan Jackson MD Start: 04-06-2016 End: 04-06-2016 XOCHITL Jackson MD Start: 04-06-2016 End: 04-06-2016 Follow Up Appt 6 months Joey Leonard Start: 03-18-2016 End: 04-05-2016 *Hepatic Function Panel Joey Leonard Start: 03-18-2016 End: 04-05-2016 Lipid 1996 panel - Serum or Plasma Brennan Jackson MD Start: 09-18-2015 End: 10-09-2015 Carotid duplex Brennan Jackson MD Start: 09-18-2015 End: 09-18-2015 XOCHITL Jackson MD Start: 09-18-2015 End: 09-19-2015 Documentation of current medications Brennan Jackson MD Start: 09-18-2015 End: 09-18-2015 Follow Up Appt 6 months Joey Leonard Start: 09-18-2015 End: 10-09-2015 Us abdominal real time w/image limited Brennan Jackson MD Start: 09-17-2015 End: 09-17-2015 *Hepatic Function Panel Joey Leonard Start: 09-17-2015 End: 09-17-2015 Lipid 1996 panel - Serum or Plasma Brennan Jackson MD Start: 03-18-2015 End: 09-17-2015 *Hepatic Function Panel Joey Leonard Start: 03-18-2015 End: 03-18-2015 ANESTHESIOLOGY RESIDENT Brennan Jackson MD Start: 03-18-2015 End: 03-18-2015 Follow Up Appt 6 months Joey Leonard Start: 03-18-2015 End: 09-17-2015 Lipid 1996 panel - Serum or Plasma Brennan Jackson MD Start: 02-26-2015 End: 03-18-2015 *Hepatic Function Panel Joey Leonard Start: 02-26-2015 End: 03-18-2015 Lipid 1996 panel - Serum or Plasma Brennan Jackson MD Start: 08-30-2014 End: 08-30-2014 *BMP Brennan Jackson MD Start: 08-30-2014 End: 08-30-2014 XOCHITL Jackson MD Start: 08-30-2014 End: 08-30-2014 Follow Up Appt 6 months Joey Leonard Start: 08-30-2014 End: 09-23-2014 Nuclear stress test -exercise Brennan Montano MD Start: 07-29-2014 End: 08-28-2014 *Hepatic Function Panel Ángela Anthony MA Start: 07-29-2014 End: 08-28-2014 Lipid 1996 panel - Serum or Plasma Ángela Anthony MA Start: 04-03-2014 End: 08-30-2014 *BMP Joanne Dumont PA-C Work Phone: Start: 03-12-2014 End: 03-12-2014 XOCHITL Jackson MD Start: 03-12-2014 End: 03-12-2014 Follow Up Appt 6 months Joey Leonard Start: 02-28-2014 End: 03-07-2014 *BMP Brennan Jackson MD Start: 02-28-2014 End: 03-07-2014 Thyrotropin [Units/volume] in Serum or Plasma Brennan Jackson MD Start: 01-26-2014 End: 02-16-2014 *Hepatic Function Panel Joey Leonard Start: 01-26-2014 End: 02-16-2014 Lipid 1996 panel - Serum or Plasma Ángela Anthony MA Start: 08-07-2013 End: 08-07-2013 XOCHITL Jackson MD Start: 08-07-2013 End: 08-07-2013 Follow Up Appt 6 months Joey Leonard Start: 07-29-2013 End: 08-06-2013 *Hepatic Function Panel Joey Leonard Start: 07-29-2013 End: 08-06-2013 Lipid 1996 panel - Serum or Plasma Brennan Jackson MD Start: 03-28-2013 End: 08-06-2013 *Hepatic Function Panel Joey Leonard Start: 03-28-2013 End: 08-06-2013 Lipid 1996 panel - Serum or Plasma Brennan Jackson MD Start: 02-28-2013 End: 03-15-2014 Thyroxine (T4) [Mass/volume] in Serum or Plasma Brennan Jackson MD Start: 01-24-2013 End: 02-15-2013 *Hepatic Function Panel Joey Leonard Start: 01-24-2013 End: 01-24-2013 ANESTHESIOLOGY RESIDENT Brennan Jackson MD Start: 01-24-2013 End: 01-24-2013 Ecg routine ecg w/least 12 lds w/i&r Brennan Jackson MD Start: 01-24-2013 End: 01-24-2013 Follow Up Appt 6 months Joey Leonard Start: 01-24-2013 End: 02-15-2013 Lipid 1996 panel - Serum or Plasma Brennan Jackson MD Start: 10-13-2012 End: 10-23-2012 *Hepatic Function Panel Joey Leonard Start: 10-13-2012 End: 10-13-2012 Ecg routine ecg w/least 12 lds w/i&r Brennan Jackson MD Start: 10-13-2012 End: 01-15-2013 Echocardiography Brennan Jackson MD Start: 10-13-2012 End: 10-13-2012 Follow Up Appt 3 months Joey Leonard Start: 10-13-2012 End: 10-23-2012 Lipid 1996 panel - Serum or Plasma Brennan Jackson MD Start: 10-02-2012 End: 10-25-2012 24 hour holter monitor Brennan Jackson MD Plan of Treatment Date Care Activity Detail Author Start: 04-13-2018 End: 04-13-2018 Appointment Appointment [facility] Work Phone: Start: 11-01-2017 End: 05-10-2017 *Hepatic Function Panel *Hepatic Function Panel [facility] Work Phone: Start: 11-01-2017 End: 05-10-2017 Lipid panel [AGGREGATE] *Lipid Profile CC PCP [facility] Work Phone: Start: 10-13-2017 End: 10-13-2017 ANESTHESIOLOGY RESIDENT ANESTHESIOLOGY RESIDENT [facility] Work Phone: Start: 10-13-2017 End: 10-13-2017 Follow Up Appt 6 months Follow Up Appt 6 months [facility] Work Phone: Start: 10-13-2017 End: 10-13-2017 Appointment Appointment [facility] Work Phone: Start: 05-03-2017 End: 05-03-2017 ANESTHESIOLOGY RESIDENT ANESTHESIOLOGY RESIDENT [facility] Work Phone: Start: 05-03-2017 End: 05-03-2017 Follow Up Appt 6 months Follow Up Appt 6 months [facility] Work Phone: Start: 05-02-2017 End: 05-02-2017 *Hepatic Function Panel *Hepatic Function Panel [facility] Work Phone: Start: 05-02-2017 End: 05-02-2017 Lipid panel [AGGREGATE] *Lipid Profile CC PCP [facility] Work Phone: Start: 11-04-2016 End: 11-04-2016 ANESTHESIOLOGY RESIDENT ANESTHESIOLOGY RESIDENT [facility] Work Phone: Start: 11-04-2016 End: 11-04-2016 Follow Up Appt 6 months Follow Up Appt 6 months [facility] Work Phone: Start: 10-04-2016 End: 11-05-2016 *Hepatic Function Panel *Hepatic Function Panel [facility] Work Phone: Start: 10-04-2016 End: 11-05-2016 Lipid panel [AGGREGATE] *Lipid Profile CC PCP [facility] Work Phone: Start: 04-06-2016 End: 04-06-2016 ANESTHESIOLOGY RESIDENT ANESTHESIOLOGY RESIDENT [facility] Work Phone: Start: 04-06-2016 End: 04-06-2016 Follow Up Appt 6 months Follow Up Appt 6 months [facility] Work Phone: Start: 03-18-2016 End: 04-05-2016 *Hepatic Function Panel *Hepatic Function Panel [facility] Work Phone: Start: 03-18-2016 End: 04-05-2016 Lipid panel [AGGREGATE] *Lipid Profile CC PCP [facility] Work Phone: Start: 09-18-2015 End: 09-18-2015 Arterial exam Arterial exam [facility] Work Phone: Start: 09-18-2015 End: 09-18-2015 Carotid duplex Carotid duplex [facility] Work Phone: Start: 09-18-2015 End: 09-18-2015 ANESTHESIOLOGY RESIDENT ANESTHESIOLOGY RESIDENT [facility] Work Phone: Start: 09-18-2015 End: 09-18-2015 Follow Up Appt 6 months Follow Up Appt 6 months [facility] Work Phone: Start: 09-18-2015 End: 09-18-2015 Us abdominal real time w/image limited US Abdominal (aneurysm screening) [facility] Work Phone: Start: 09-17-2015 End: 09-17-2015 *Hepatic Function Panel *Hepatic Function Panel [facility] Work Phone: Start: 09-17-2015 End: 09-17-2015 Lipid panel [AGGREGATE] *Lipid Profile CC PCP [facility] Work Phone: Start: 03-18-2015 End: 09-17-2015 *Hepatic Function Panel *Hepatic Function Panel [facility] Work Phone: Start: 03-18-2015 End: 03-18-2015 ANESTHESIOLOGY RESIDENT ANESTHESIOLOGY RESIDENT [facility] Work Phone: Start: 03-18-2015 End: 03-18-2015 Follow Up Appt 6 months Follow Up Appt 6 months [facility] Work Phone: Start: 03-18-2015 End: 09-17-2015 Lipid panel [AGGREGATE] *Lipid Profile CC PCP [facility] Work Phone: Start: 02-26-2015 End: 03-18-2015 *Hepatic Function Panel *Hepatic Function Panel [facility] Work Phone: Start: 02-26-2015 End: 03-18-2015 Lipid panel [AGGREGATE] *Lipid Profile CC PCP [facility] Work Phone: Start: 08-30-2014 End: 08-30-2014 *BMP *BMP [facility] Work Phone: Start: 08-30-2014 End: 08-30-2014 ANESTHESIOLOGY RESIDENT ANESTHESIOLOGY RESIDENT [facility] Work Phone: Start: 08-30-2014 End: 08-30-2014 Follow Up Appt 6 months Follow Up Appt 6 months [facility] Work Phone: Start: 08-30-2014 End: 08-30-2014 Nuclear stress test -exercise Nuclear stress test -exercise [facility] Work Phone: Start: 07-29-2014 End: 08-28-2014 *Hepatic Function Panel *Hepatic Function Panel [facility] Work Phone: Start: 07-29-2014 End: 08-28-2014 Lipid panel [AGGREGATE] *Lipid Profile CC PCP [facility] Work Phone: Start: 04-03-2014 End: 08-30-2014 *BMP *BMP [facility] Work Phone: Start: 03-12-2014 End: 03-12-2014 ANESTHESIOLOGY RESIDENT ANESTHESIOLOGY RESIDENT [facility] Work Phone: Start: 03-12-2014 End: 03-12-2014 Follow Up Appt 6 months Follow Up Appt 6 months [facility] Work Phone: Start: 02-28-2014 End: 02-28-2014 *BMP *BMP [facility] Work Phone: Start: 01-26-2014 End: 02-16-2014 *Hepatic Function Panel *Hepatic Function Panel [facility] Work Phone: Start: 01-26-2014 End: 02-16-2014 Lipid panel [AGGREGATE] *Lipid Profile CC PCP [facility] Work Phone: Start: 08-07-2013 End: 08-07-2013 ANESTHESIOLOGY RESIDENT ANESTHESIOLOGY RESIDENT [facility] Work Phone: Start: 08-07-2013 End: 08-07-2013 Follow Up Appt 6 months Follow Up Appt 6 months [facility] Work Phone: Start: 07-29-2013 End: 08-06-2013 *Hepatic Function Panel *Hepatic Function Panel [facility] Work Phone: Start: 07-29-2013 End: 08-06-2013 Lipid panel [AGGREGATE] *Lipid Profile [facility] Work Phone: Start: 03-28-2013 End: 08-06-2013 *Hepatic Function Panel *Hepatic Function Panel [facility] Work Phone: Start: 03-28-2013 End: 08-06-2013 Lipid panel [AGGREGATE] *Lipid Profile [facility] Work Phone: Start: 02-28-2013 End: 02-28-2014 Thyroid stimulating hormone (TSH) *TSH [facility] Work Phone: Start: 02-28-2013 End: 02-28-2014 Thyroxine (T4) *T4 (Total) [facility] Work Phone: Start: 01-24-2013 End: 02-15-2013 *Hepatic Function Panel *Hepatic Function Panel [facility] Work Phone: Start: 01-24-2013 End: 01-24-2013 ANESTHESIOLOGY RESIDENT ANESTHESIOLOGY RESIDENT [facility] Work Phone: Start: 01-24-2013 End: 01-24-2013 Ecg routine ecg w/least 12 lds w/i&r EKG (In office) [facility] Work Phone: Start: 01-24-2013 End: 01-24-2013 Follow Up Appt 6 months Follow Up Appt 6 months [facility] Work Phone: Start: 01-24-2013 End: 02-15-2013 Lipid panel [AGGREGATE] *Lipid Profile [facility] Work Phone: Start: 10-13-2012 End: 10-23-2012 *Hepatic Function Panel *Hepatic Function Panel [facility] Work Phone: Start: 10-13-2012 End: 10-13-2012 Cardiac Rehab Cardiac Rehab [facility] Work Phone: Start: 10-13-2012 End: 10-13-2012 Ecg routine ecg w/least 12 lds w/i&r EKG (In office) [facility] Work Phone: Start: 10-13-2012 End: 10-13-2012 Echocardiography Echocardiogram (complete) [facility] Work Phone: Start: 10-13-2012 End: 10-13-2012 Follow Up Appt 3 months Follow Up Appt 3 months [facility] Work Phone: Start: 10-13-2012 End: 10-23-2012 Lipid panel [AGGREGATE] *Lipid Profile [facility] Work Phone: Start: 10-02-2012 End: 10-02-2012 24 hour holter monitor 24 hour holter monitor [facility] Work Phone: Patient Education [facility] Work Phone: Additional Source Comments FOR RECORDS PERTAINING TO PATIENTS WHO ARE OR HAVE BEEN ENROLLED IN A CHEMICAL DEPENDENCY/SUBSTANCEABUSE PROGRAM, SOME INFORMATION MAY BE OMITTED. This clinical summary was aggregated from multiple sources. Caution should be exercised in using it in the provision of clinical care. This summary normalizes information from multiple sources, and as a consequence, information in this document may materially change the coding, format and clinical context of patient data. In addition, data may be omitted in some cases. CLINICAL DECISIONS SHOULD BE BASED ON THE PRIMARY CLINICAL RECORDS. [employer] [facility]. provides no warranty or guarantee of the accuracy or completeness of information in this document.
== END | disposition home or self-care (01) ==
LOC: PAT 07-12 12:08
PROVIDERS: PCP Family Medicine; Referring Provider Internal Medicine Cardiovascular Disease; Visit Provider Internal Medicine Cardiovascular Disease
DX: I48.92 Unspecified atrial flutter (principal); I42.9 Cardiomyopathy, unspecified; I25.10 Atherosclerotic heart disease of native coronary artery without angina pectoris; I25.2 Old myocardial infarction; Z95.5 Presence of coronary angioplasty implant and graft; Z79.01 Long term (current) use of anticoagulants; Z87.891 Personal history of nicotine dependence
CPT/HCPCS: 36415; 80048; 85025; 85610; 85730

== ENCOUNTER → 2023-06-20 | Outpatient (CLI) | payer MEDICARE, OTHER, SELFPAY ==
[2023-06-20 12:58] LABS: Absolute Lymphocyte Count 1.52 X10^3/uL (0.83-4.51); Absolute Neutrophil Count 8.6 X10^3/uL (2.0-7.7); Basophil# 0.07 X10^3/uL; Basophil% 0.6 % (0-1); Eosinophil# 0.41 X10^3/uL; Eosinophils% 3.4 % (0-5); Hematocrit 36.7 % (40-54); Hemoglobin 11.3 g/dL (13.0-16.5); Lymphocyte # 1.52 X10^3/ul (0.83-4.51); Lymphocyte % 12.7 % (19-41); Mean Corp Hgb Conc 30.8 g/dL (32-36); Mean Corpuscular Hgb 29.1 pg (27.0-32.0); Mean Corpuscular Volume 94.6 fL (80-94); Mean Platelet Vol. 11.8 fl (6.2-12.0); Monocyte# 1.26 X10^3/uL; Monocyte% 10.6 % (0-10); NRBC Flagged by Analyzer 0 % (0-5); Neutrophil # 8.61 X10^3/uL (2.7-7.7); Neutrophil % 72.2 % (47-70); Platelet Count 435 K/mm3 (150-450); RBC Distribution Width CV 15.2 % (11.6-14.6); RBC Distribution Width SD 52.4 fl (35.1-43.9); Red Blood Count 3.88 M/mm3 (4.6-6.2); White Blood Count 11.9 K/mm3 (4.4-11.0)
[2023-06-20 13:01] LABS: Erythrocyte Sedimentation Rate 5 mm/hr (0-20)
[2023-06-20 13:47] LABS: ALB/GLOB Ratio 0.8 RATIO (0.9-2.4); AST(SGOT) 16 U/L (15-37); Alanine Aminotransfer ALT/SGPT 13 U/L (16-61); Albumin, Serum 3.2 g/dL (3.2-5.0); Alkaline Phosphatase 67 U/L (45-117); Anion Gap 6 (5-15); BUN 39 mg/dL (7-18); Bilirubin, Direct 0.22 mg/dL (0.00-0.30); Calcium,Total 8.3 mg/dL (8.5-10.1); Chloride 112 mmol/L (98-107); Creatinine, Serum 3.53 mg/dL (0.70-1.30); EST Glomerular Filtration Rate 18 mL/min (>60); Est Glom Filt Rate - Afr Amer 22 mL/min (>60); Globulin 3.8 g/dL (2.2-4.2); Glucose 82 mg/dL (74-106); PSA,Total - Annual Screen 3.54 ng/mL (0.00-4.00); Phosphorus 3.7 mg/dL (2.5-4.9); Potassium 4.8 mmol/L (3.5-5.1); Sodium Level 140 mmol/L (136-145)
[2023-06-23 10:27] LABS: Free T3 2.2 pg/mL (2.18-3.98); T4 Free Direct 1.13 ng/dL (0.76-1.46)
== END | disposition home or self-care (01) ==
LOC: MFPLAB 10:28
PROVIDERS: PCP Family Medicine; Visit Provider Family Medicine
DX: R79.89 Other specified abnormal findings of blood chemistry (principal); Z12.5 Encounter for screening for malignant neoplasm of prostate
CPT/HCPCS: 36415; 80053; 82248; 84100; 84153; 84439; 84443; 84481; 85025; 85652; G0103

== ENCOUNTER → 2023-06-22 | Outpatient (CLI) | payer MEDICARE, OTHER, SELFPAY ==
--- NOTE | 2023-06-22 12:20 | CT_ITS ---
STUDY: CT CHEST, ABDOMEN T PELVIS WITHOUT CONTRAST REASON FOR EXAM: Male, 72 years old. Elevated Creatinine w/ suprapubic mass and hernia of umbilicus: RADIATION DOSAGE (If Supplied By Facility): CTDIvol = ( 12.86 ) mGy, DLP = ( 1169.38 ) mGycm TECHNIQUE: Transaxial imaging was performed without the administration of intravenous contrast material. Multiplanar coronal and sagittal images were reformatted. Individualized dose optimization techniques were used for this CT. COMPARISON: No relevant priors. FINDINGS: CHEST Diffuse heterogeneous enlargement of the thyroid gland worse on the left side with substernal extension on the left side. Minimal compression along the left side of the trachea with displacement of the trachea from left to right. Minimal increased markings in the lingular segment of the left upper lobe suggestive of atelectasis and/or scarring. There is no demonstrated pleural abnormality. There are calcifications of the coronary arteries. There are multiple small lymph nodes within the mediastinum, which are normal in size and morphology most compatible with reactive lymph hyperplasia. Normal hilar regions. Normal unenhanced pulmonary arteries. There is atherosclerotic calcification of the aortic arch with tortuosity and elongation of the aortic arch and descending thoracic aorta. There are mild degenerative changes of the thoracic spine. There is no demonstrated abnormality of the visualized upper abdomen. ABDOMEN Normal liver. The gallbladder is contracted. A tiny gallstone is seen along its dependent portion. There is moderate splenomegaly. Calcified splenic granulomas. Normal pancreas. Normal bilateral adrenal glands. There is a marked degree of bilateral hydronephrosis down to the urinary bladder. Normal visualized stomach. Normal small intestine. Normal colon. The appendix is visualized and appears normal. There is diffuse atherosclerotic calcification of the abdominal aorta and its major visceral branches, without a demonstrated aneurysm. Normal inferior vena cava. Normal retroperitoneum. Normal abdominal wall. There are degenerative changes of the visualized lumbar spine. Minimal anterior listhesis of L4 on L5. Findings suggestive of a hemangioma of the L4 vertebrae. Degenerative change of the sacroiliac joints bilaterally. PELVIS The urinary bladder is markedly distended. The prostate is enlarged. It measures 6.1 cm x 5.5 cm. This causes indentation of the bladder base. Prostatic calcifications are seen. There is prominence of the seminal vesicles. Normal visualized small intestine. Normal visualized colon. There is no pelvic fluid. There is no pelvic lymphadenopathy or mass lesion. There is diffuse atherosclerotic calcification of the pelvic arteries. CT/CT Chest, Abd, Pelvis WO Cont IMPRESSION: Marked degree of bilateral hydronephrosis and hydroureter. Marked degree of bladder distention. Irregular enlargement of the prostate with indentation of the bladder base. Enlargement of the seminal vesicles. Moderate degree of splenomegaly. Electronically Signed: Grayson Shah MD at 12:54 EDT ,
== END | disposition home or self-care (01) ==
LOC: CT 12:19
PROVIDERS: PCP Family Medicine; Referring Provider Family Medicine; Visit Provider Family Medicine
DX: R19.00 Intra-abdominal and pelvic swelling, mass and lump, unspecified site (principal); R79.89 Other specified abnormal findings of blood chemistry; K42.9 Umbilical hernia without obstruction or gangrene; R60.0 Localized edema
CPT/HCPCS: 71250; 74176

== ENCOUNTER 2023-06-23 17:42 | Emergency (ER) | payer MEDICARE, OTHER, SELFPAY ==
[2023-06-23 17:44] VITALS: BP 165/112; PULSE 116; RESP 19; TEMP 36.6; O2SAT 100; BMI 24.5
--- NOTE | 2023-06-23 19:32 | EX.ED.DYSGE1 ---
HPI <JOSEFINA Hendrickson - Last Filed: 06/23/23 20:30> History of Present Illness Chief Complaint: Valenzuela C/O Narrative Narrative: Patient presenting today due to hematuria that started this afternoon after having a Valenzuela catheter placed with Dr. Pillai in the office this morning. He had this placed for BPH that has caused urinary retention. He denies any fever, chills, abdominal pain, nausea, and vomiting. He is on Eliquis for atrial fibrillation. 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) Home Medications pravastatin 20 mg tablet 20 mg PO QHS #90 tabs 08/06/22 [Rx Last Taken Unknown] carvedilol 6.25 mg tablet 6.25 mg PO BID #180 tabs 08/31/22 [Rx Last Taken Unknown] clopidogrel 75 mg tablet 75 mg PO DAILY #90 tabs 08/31/22 [Rx Last Taken Unknown] apixaban 2.5 mg tablet 2.5 mg PO BID #60 tabs 06/14/23 [Rx Last Taken Unknown] Allergy/AdvReac Type Severity Reaction Status Date / Time No Known Allergies Allergy Verified 06/23/23 17:44 Family History Father CAD (coronary artery disease) Mother CAD (coronary artery disease) Surgical History History of brain surgery (10/2017) History of coronary artery stent placement (09/28/12) Social History Smoking Status: Former smoker how long ago did patient quit smokin alcohol intake: current alcohol intake frequency: a few times a week substance use type: does not use caffeine: Yes Type: coffee Number of servings: 1 ROS <JOSEFINA Hendrickson - Last Filed: 06/23/23 20:30> ROS ED Constitutional Constitutional ED: Denies chills or fever(s) Cardiovascular Cardiovascular: Denies chest pain Respiratory/Chest Respiratory/Chest: Denies cough or dyspnea Gastrointestinal Gastrointestinal: Denies abdominal pain, nausea or vomiting Genitourinary Genitourinary ED: Reports hematuria Musculoskeletal Musculoskeletal: Denies arthralgias or myalgias Integumentary Denies rash Neurologic Neurologic: Denies weakness EXAM <JOSEFINA Hendrickson - Last Filed: 06/23/23 20:30> Physical Exam Const Vital Signs: 06/23/23 17:44 06/23/23 19:43 06/23/23 20:26 Temperature 97.8 F Temperature Source Temporal Pulse Rate 116 H 63 Respiratory Rate 19 H 17 17 Blood Pressure 165/112 H 142/77 H Blood Pressure Mean 129 Pulse Ox 100 98 98 Oxygen Delivery Method Room Air Room Air Positive well nourished, well developed and no apparent distress General Appearance ED: well developed HEENT Reports normocephalic and head/scalp atraumatic Mouth ED: Yes moist mucous membranes normal Eyes PERRL and EOMs intact bilaterally Neck full ROM and supple Chest Wall inspection of chest normal Resp normal respiratory effort and clear to auscultation bilaterally Cardio regular rate and regular rhythm GI soft to palpation, non-tender, non-distended and no masses Back/Spine normal ROM and normal to inspection Extremity normal to inspection and full ROM Neuro oriented x3, CN's II-XII intact bilaterally, moves all extremities, no focal motor deficits and no sensory deficits noted Sensorium / Orientation: awake and alert Psych mental status grossly normal and thought process normal Skin no rashes or lesions noted and no wounds <Dr. Donovan Natarajan MD - Last Filed: 06/23/23 21:58> Physical Exam Const Vital Signs: 06/23/23 17:44 06/23/23 19:43 06/23/23 20:26 Temperature 97.8 F Temperature Source Temporal Pulse Rate 116 H 63 Respiratory Rate 19 H 17 17 Blood Pressure 165/112 H 142/77 H Blood Pressure Mean 129 Pulse Ox 100 98 98 Oxygen Delivery Method Room Air Room Air MDM <JOSEFINA Hendrickson - Last Filed: 06/23/23 20:30> MDM MDM Narrative Medical decision making narrative: Patient presenting today due to hematuria due to new Valenzuela catheter placement by Dr. Pillai this morning. He is well-appearing and in no acute distress. The Valenzuela catheter was irrigated by the nurses and they were able to flush it clear. He does take Eliquis for A-fib but we have encouraged him to discontinue that for the next 48 hours and then resume. He is to follow-up with Dr. Pillai and will be discharged home in stable condition. He has been given return instructions and is comfortable with plan. <Dr. Donovan Natarajan MD - Last Filed: 06/23/23 21:58> [facility] MDM Narrative Medical decision making narrative: Patient presenting today due to hematuria due to new Valenzuela catheter placement by Dr. Pillai this morning. He is well-appearing and in no acute distress. The Valenzuela catheter was irrigated by the nurses and they were able to flush it clear. He does take Eliquis for A-fib but we have encouraged him to discontinue that for the next 48 hours and then resume. He is to follow-up with Dr. Pillai and will be discharged home in stable condition. He has been given return instructions and is comfortable with plan. I have personally performed a face to face assessment of the patient and have reviewed the ACACIA Note. I performed a substantive portion of the visit including all aspects of the following. My blankenship findings include: History is remarkable for Dr. Pillai placing a Valenzuela. Patient presents because of bright red blood per Valenzuela. Exam is patient has bright red blood per Valenzuela. He has no testicular or scrotal pain. He has no suprapubic discomfort or low back pain. He has not on Plavix. He is on an anticoagulant. He is on anticoagulant for atrial fib. Medical Decision Making the Valenzuela was irrigated and cleared. Patient was instructed to hold his next 4 doses of Eliquis. Other additions or changes: [None] Discharge Plan Triage Chief Complaint: Valenzuela C/O ED Midlevel Provider: Joelle Mayes ED Provider: Donovan Natarajan Dx/Rx/DC Orders Clinical Impression: Hematuria, Valenzuela catheter problem, New onset atrial flutter, HLD (hyperlipidemia), HTN (hypertension), benign, Anticoagulant long-term use Instructions: ED Valenzuela Catheter, Care Prescriptions: No Action carvedilol 6.25 mg tablet 6.25 mg PO BID Qty: 180 3RF clopidogrel 75 mg tablet 75 mg PO DAILY Qty: 90 3RF pravastatin 20 mg tablet 20 mg PO QHS Qty: 90 3RF Eliquis 2.5 mg tablet 2.5 mg PO BID Qty: 60 3RF Primary Care Provider: Jef Anthony Referrals: Jef Anthony MD [Primary Care Provider] - 3-5 Days Activity Restrictions/Additional Instructions: Please follow-up with Dr. Pillai and hold your Eliquis for 48 hours. Please return for any worsening of your symptoms. Disposition Disposition: Home, Self Care Discharge Date/Time: 06/23/23 20:54
[2023-06-23 19:43] VITALS: RESP 17; O2SAT 98
[2023-06-23 20:26] VITALS: BP 142/77; PULSE 63; RESP 17; O2SAT 98
== END 2023-06-23 20:54 | disposition home or self-care (01) ==
PROVIDERS: Emergency Provider Emergency Medicine; PCP Family Medicine; Visit Provider Emergency Medicine
DX: R33.9 Retention of urine, unspecified (principal); T83.89XA Other specified complication of genitourinary prosthetic devices, implants and grafts, initial encounter; I48.91 Unspecified atrial fibrillation; I48.92 Unspecified atrial flutter; I10 Essential (primary) hypertension; I25.10 Atherosclerotic heart disease of native coronary artery without angina pectoris; E78.5 Hyperlipidemia, unspecified; R31.9 Hematuria, unspecified; Z87.891 Personal history of nicotine dependence; Z79.01 Long term (current) use of anticoagulants; X58.XXXA Exposure to other specified factors, initial encounter
CPT/HCPCS: 99282

== ENCOUNTER 2023-06-29 00:03 | Emergency (ER) | payer MEDICARE, OTHER, SELFPAY ==
[2023-06-29 00:04] VITALS: BP 174/98; PULSE 83; RESP 15; TEMP 36.8; O2SAT 97
[2023-06-29 00:16] VITALS: BMI 22.7
[2023-06-29] MEDS: Ondansetron 4 MG/2 ML Vial IV (00:27)
[2023-06-29] MEDS: 0.9% Normal Saline 1,000 ML 1000 ML IV (00:27)
[2023-06-29] MEDS: Morphine 4 MG/ML Syringe IV (00:27)
[2023-06-29 00:39] LABS: Absolute Lymphocyte Count 2.35 X10^3/uL (0.83-4.51); Absolute Neutrophil Count 10.2 X10^3/uL (2.0-7.7); Basophil# 0.07 X10^3/uL; Basophil% 0.5 % (0-1); Eosinophil# 0.53 X10^3/uL; Eosinophils% 3.7 % (0-5); Hematocrit 40.8 % (40-54); Hemoglobin 12.8 g/dL (13.0-16.5); Lymphocyte # 2.35 X10^3/ul (0.83-4.51); Lymphocyte % 16.3 % (19-41); Mean Corp Hgb Conc 31.4 g/dL (32-36); Mean Corpuscular Hgb 28.8 pg (27.0-32.0); Mean Corpuscular Volume 91.9 fL (80-94); Mean Platelet Vol. 11.4 fl (6.2-12.0); Monocyte# 1.14 X10^3/uL; Monocyte% 7.9 % (0-10); NRBC Flagged by Analyzer 0 % (0-5); Neutrophil # 10.19 X10^3/uL (2.7-7.7); Neutrophil % 70.8 % (47-70); Platelet Count 456 K/mm3 (150-450); RBC Distribution Width CV 14.6 % (11.6-14.6); RBC Distribution Width SD 49.1 fl (35.1-43.9); Red Blood Count 4.44 M/mm3 (4.6-6.2); White Blood Count 14.4 K/mm3 (4.4-11.0)
[2023-06-29 00:53] LABS: Anion Gap 5 (5-15); BUN 32 mg/dL (7-18); BUN/Creat Ratio 16.8 RATIO (10-20); Calcium,Total 8.8 mg/dL (8.5-10.1); Chloride 105 mmol/L (98-107); EST Glomerular Filtration Rate 37 mL/min (>60); Est Glom Filt Rate - Afr Amer 45 mL/min (>60); Estimated Creatinine Clearance 36.19 ml/min; Glucose 124 mg/dL (74-106); Lipase 70 U/L (13-75); Potassium 4.3 mmol/L (3.5-5.1); Sodium Level 136 mmol/L (136-145)
--- NOTE | 2023-06-29 01:07 | EX.ED.DYSGE1 ---
HPI History of Present Illness Chief Complaint: Abd Pain [facility] Medical History (Updated 06/29/23 @ 03:[address] Rafa Ryan, DO) Atherosclerosis of coronary artery of [place] heart without angina pectoris Benign tumor of brain Enlarged prostate HLD (hyperlipidemia) New onset atrial flutter (09/09/22) Old inferior wall myocardial infarction (09/28/12) Home Medications pravastatin 20 mg tablet 20 mg PO QHS #90 tabs 08/06/22 [Rx Last Taken Unknown] carvedilol 6.25 mg tablet 6.25 mg PO BID #180 tabs 08/31/22 [Rx Last Taken Unknown] clopidogrel 75 mg tablet 75 mg PO DAILY #90 tabs 08/31/22 [Rx Last Taken Unknown] apixaban 2.5 mg tablet 2.5 mg PO BID #60 tabs 06/14/23 [Rx Last Taken Unknown] Allergy/AdvReac Type Severity Reaction Status Date / Time No Known Allergies Allergy Verified 06/29/23 00:08 Family History Father CAD (coronary artery disease) Mother CAD (coronary artery disease) Surgical History History of brain surgery (10/2017) History of coronary artery stent placement (09/28/12) Social History Smoking Status: Former smoker how long ago did patient quit smokin alcohol intake: current alcohol intake frequency: a few times a week substance use type: does not use caffeine: Yes Type: coffee Number of servings: 1 EXAM Physical Exam Const Vital Signs: 06/29/23 00:04 06/29/23 02:04 06/29/23 03:46 Temperature 98.2 F Temperature Source Temporal Pulse Rate 83 76 74 Respiratory Rate 15 20 H 16 Blood Pressure 174/98 H 144/78 H Blood Pressure Mean 123 Pulse Ox 97 97 99 Oxygen Delivery Method Room Air MDM MDM MDM Narrative Medical decision making narrative: HISTORY OF PRESENT ILLNESS: 72-year-old male here with abdominal pain that started this evening. States has a history of umbilical hernia. States the pain is no located over his umbilicus. No vomiting but nausea. Last bowel movement was yesterday. No melena hematochezia noted. No fevers. REVIEW OF SYSTEMS: Pertinent positives: Abdominal pain Pertinent negatives: Urinary complaints, constipation, vomiting PHYSICAL EXAM: Nursing triage notes reviewed, Vital signs reviewed Constitutional: please see [facility] HENT: MMM Eyes: Pupils equal round and reactive to light, Extraocular muscles intact Neck: No stridor, no JVD, full neck ROM Lungs: Clear to auscultation, No wheezing or rales. No increased work of breathing, no conversational dyspnea, no accessory muscle use, no nasal flaring. No respiratory distress noted Heart: Regular rate and rhythm, No murmurs, No rubs and No gallops, 2+ distal pulses (radial, femoral, posterior tibial) in all extremities Abdomen: Obvious umbilical hernia that was reduced at the bedside. No peritoneal signs. : No CVAT Extremities: No edema Neuro: No focal neurological deficits, cranial nerves II through XII intact, 5/5 strength in all extremities. Intact sensation to light touch in all extremities, 2+ reflexes bilateral patella tendons. Normal gait. No ataxia. Skin: No rash or lesions noted MEDICAL DECISION MAKING: Chief Complaint: Abdominal pain External records reviewed: CT scan of the chest abdomen pelvis from 06/22/2023 shows the following: IMPRESSION: Marked degree of bilateral hydronephrosis and hydroureter. Marked degree of bladder distention. Irregular enlargement of the prostate with indentation of the bladder base. Enlargement of the seminal vesicles. Moderate degree of splenomegaly. Factors affecting care: CAD, benign brain tumor, enlarged prostate, hyperlipidemia, atrial flutter (on Eliquis) Social determinants of health: Elderly History obtained from others: The patient's Consults: none ALL IMAGES (IF OBTAINED) HAVE BEEN PERSONALLY REVIEWED AND INTERPRETED BY MYSELF. [facility] Narrative: Patient was hemodynamically stable, afebrile, nontoxic-appearing. Abdominal exam with umbilical hernia. This was reduced at the bedside. I considered the following differential diagnosis: AAA, small bowel obstruction, abdominal perforation, appendicitis, pancreatitis, hepatobiliary pathology (acute cholecystitis), incarcerated hernia, mesenteric ischemia, abnormalities such as ovarian pathology, PID. I obtained a broad lab and imaging work-up to further elucidate etiology patient complaints. CT scan showed no evidence of incarcerated hernia. Lactate was negative. Patient on reassessment had a benign abdominal exam hernia remained reduced. Suspect the patient's etiology was secondary to incarcerated hernia of the was reduced at the bedside. He is given general surgery follow-up and strict return precautions. The patient and/or family, caregivers express understanding. The patient and/or family, caregivers agrees with the plan. Shared decision making: I will have a discussion with the patient and or visitors regarding risk/benefits of further testing or admission. They will be made aware of of the risk/benefits inherent in this decision they will be given the opportunity to voice understanding. Total critical care time today provided was at least 0 [] minutes. This excludes separately billable procedures. Critical care time (if documented) is secondary to the patient having high probability of clinically significant/life threatening deterioration in the patient's condition which required my urgent intervention. Lab Data Attestation: I reviewed the patient's lab results. Lab results narrative: CBC with leukocytosis suggestive of systemic inflammation, mild anemia, no thrombocytopenia BMP without evidence of significant electrolyte abnormalities, no anion gap, noted CKD Lipase is wnl indicating no pancreatic inflammation. Lactate is wnl indicating no end-organ hypoperfusion and/or hypoxia. Urinalysis shows no evidence of urinary inflammation suggestive of UTI Labs: Laboratory Results - last 24 hr 06/29/23 06/29/23 06/29/23 00:30 01:45 02:15 WBC 14.4 H RBC 4.44 L Hgb 12.8 L Hct 40.8 MCV 91.9 MCH 28.8 MCHC 31.4 L RDW Std Deviation 49.1 H RDW Coeff of Jeanine 14.6 Plt Count 456 H MPV 11.4 Immature Gran % (Auto) 0.800 Neut % (Auto) 70.8 H Lymph % (Auto) 16.3 L [place] % (Auto) 7.9 Eos % (Auto) 3.7 Baso % (Auto) 0.5 Absolute Neuts (auto) 10.2 H Absolute Lymphs (auto) 2.35 Nucleated RBC % 0 Sodium 136 Potassium 4.3 Chloride 105 Carbon Dioxide 26.0 Anion Gap 5 BUN 32 H Creatinine 1.90 H Estim Creat Clear Calc 36.19 Est GFR (MDRD) Af Amer 45 L Est GFR (MDRD) Non-Af 37 L BUN/Creatinine Ratio 16.8 Glucose 124 H Lactic Acid 0.7 Calcium 8.8 Lipase 70 Urine Color Yellow Urine Clarity Clear Urine pH 6.0 Ur Specific [place] 1.010 Urine Protein 15 H Urine Glucose (UA) Normal Urine Ketones Negative Urine Occult Blood 50 H Urine Nitrite Negative Urine Bilirubin Negative Urine Urobilinogen Normal Ur Leukocyte Esterase 100 H Urine RBC 0-5 SEEN Urine WBC 5-10 SEEN Ur Squamous Epith Cells 0 SEEN Urine Bacteria 1+ Urine Mucus 0 SEEN Radiography Diagnostic Testing: Clinical Impression(s) from Imaging Studies Abdomen/Pelvis CT 06/29/23 01:33 IMPRESSION: Improved but persistent moderate right hydronephrosis. Improved but persistent mild left hydronephrosis with left renal edema and stable possible proteinaceous hemorrhagic or atypical cyst left kidney. Persistent moderate splenomegaly. Interval greater distention of the small bowel consider ileus. There is greater caliber large bowel at this time. There is a 1.97 cm small midline abdominal wall hernia containing a possible small focus of fluid and/or potentially a small focus of mesentery. If appropriate to consider a follow-up oral contrast study. Interval Valenzuela catheter in the bladder with wall thickening suspicious for cystitis. There is a reduction in the over distended bladder when compared to the prior study. Prostate enlargement. Degenerative change of the thoracolumbar spine. Coronary artery calcifications mild cardiac enlargement. Electronically Signed: Mamta Green MD at 2:45 EDT , Discharge Plan Triage Chief Complaint: Abd Pain ED Provider: Rafa Ryan Dx/Rx/DC Orders Clinical Impression: Hernia, umbilical Instructions: ED Hernia (Adult) Prescriptions: No Action carvedilol 6.25 mg tablet 6.25 mg PO BID Qty: 180 3RF clopidogrel 75 mg tablet 75 mg PO DAILY Qty: 90 3RF pravastatin 20 mg tablet 20 mg PO QHS Qty: 90 3RF Eliquis 2.5 mg tablet 2.5 mg PO BID Qty: 60 3RF Primary Care Provider: Jef Anthony Referrals: Willie Elliott MD [Med Staff - Active Staff] - Activity Restrictions/Additional Instructions: Thank you for trusting us with your care today! Please take Tylenol (2 pills, 650 mg), ibuprofen (2 pills, 400 mg) every 6 hours as needed for pain and fever control. Please return to the emergency department if your symptoms change or worsen. Specifically develop worsening abdominal pain, notice an umbilical hernia that you cannot push back in or reduce, vomiting or have bowel movements at regular intervals. Please follow with general surgery, Dr. Elliott for further outpatient evaluation and management. Disposition Disposition: Home, Self Care Discharge Date/Time: 06/29/23 03:47
--- NOTE | 2023-06-29 01:33 | CT_ITS ---
STUDY: CT ABDOMEN AND PELVIS WITH CONTRAST REASON FOR EXAM: Male, 72 years old. Abdominal pain RADIATION DOSAGE (If Supplied By Facility): CTDIvol = ( 10.27 ) mGy, DLP = ( 750.95 ) mGycm TECHNIQUE: Transaxial images were obtained from the dome of the diaphragm to the symphysis pubis without oral contrast. IV 100mL Isovue-300 was administered. Sagittal and coronal images were reconstructed. Individualized dose optimization techniques were used for this CT. COMPARISON: June 22, 2023 CT scan chest abdomen and pelvis FINDINGS: The visualized lung bases are unremarkable. There is mild cardiac enlargement there''s visualized coronary calcification. Normal liver. Normal gallbladder and extrahepatic biliary system. There is moderate splenomegaly. Normal pancreas. Normal bilateral adrenal glands. There is improved but moderate right hydronephrosis. There is improved but mild left hydronephrosis. There is a persistent small left 1.3 cm renal cyst or small focus of perinephric fluid with persistent high density Hounsfield units,. This may represent a small hemorrhagic or proteinaceous cyst. Normal visualized stomach. There are mildly distended loops of small bowel. There is moderate stool in the colon. The appendix is visualized and appears normal. Aorta is tortuous partially calcified. There is calcification of bilateral common femoral arteries. Normal inferior vena cava. Normal retroperitoneum. Since the prior study a Valenzuela catheter is placed in the bladder. There is visualized hyperdense appearance of the contents of the bladder which may represent possible mixing of contrast and/or wall thickening associated with cystitis. There is mild prostate enlargement. There is a persistent fatty umbilical hernia containing a small amount of fluid possible small focus of mesentery. This measures approximately 1.3 x 1.9 cm. There is slight anterolisthesis at the level of L4-L5. There is a broad disc osteophyte moderate neural foramina narrowing mild to moderate central stenosis facet arthropathy. At L3-L4 there is vacuum phenomenon moderate neural foraminal narrowing moderate central stenosis. There is multilevel spondylosis. CT/Abdomen/Pelvis W IV Cont ONLY IMPRESSION: Improved but persistent moderate right hydronephrosis. Improved but persistent mild left hydronephrosis with left renal edema and stable possible proteinaceous hemorrhagic or atypical cyst left kidney. Persistent moderate splenomegaly. Interval greater distention of the small bowel consider ileus. There is greater caliber large bowel at this time. There is a 1.97 cm small midline abdominal wall hernia containing a possible small focus of fluid and/or potentially a small focus of mesentery. If appropriate to consider a follow-up oral contrast study. Interval Valenzuela catheter in the bladder with wall thickening suspicious for cystitis. There is a reduction in the over distended bladder when compared to the prior study. Prostate enlargement. Degenerative change of the thoracolumbar spine. Coronary artery calcifications mild cardiac enlargement. Electronically Signed: Mamta Green MD at 2:45 EDT ,
[2023-06-29 02:04] VITALS: PULSE 76; RESP 20; O2SAT 97
[2023-06-29 02:13] LABS: Lactic Acid 0.7 mmol/L (0.4-1.9)
[2023-06-29 02:22] LABS: Mucous, Urine 0 SEEN /hpf (<or=2+); Squamous Epithelial Cells - UA 0 SEEN /hpf (0-5)
[2023-06-29 02:24] LABS: Color, Urine Yellow (Yellow); Glucose, Dipstick Normal (Normal); Ketone-Dipstick Negative (Negative); Leukocyte Esterase-Dipstick 100 /ul (Negative); Nitrite-Dipstick Negative (Negative); Occult Blood-Urine 50 /ul (Negative); Protein-Dipstick 15 mg/dl (Negative); Urine Bilirubin Dipstick Negative (Negative); Urine Clarity Clear (Clear); Urine Urobilinogen Normal (Normal)
[2023-06-29 02:32] LABS: Bacteria 1+ /hpf (None Seen); Red Blood Cells-Urine 0-5 SEEN /hpf (0-5); White Blood Cells 5-10 SEEN /hpf (0-5)
[2023-06-29 03:46] VITALS: BP 144/78; PULSE 74; RESP 16; O2SAT 99
== END 2023-06-29 03:47 | disposition home or self-care (01) ==
PROVIDERS: Emergency Provider Emergency Medicine; PCP Family Medicine; Visit Provider Emergency Medicine
DX: K42.9 Umbilical hernia without obstruction or gangrene (principal); I48.92 Unspecified atrial flutter; I25.10 Atherosclerotic heart disease of native coronary artery without angina pectoris; I25.2 Old myocardial infarction; Z95.5 Presence of coronary angioplasty implant and graft; Z79.02 Long term (current) use of antithrombotics/antiplatelets; Z79.899 Other long term (current) drug therapy; Z87.891 Personal history of nicotine dependence; E04.9 Nontoxic goiter, unspecified
CPT/HCPCS: 74177; 76536; 80048; 81001; 83605; 83690; 85025; 96361; 96374; 96375; 96376; 99282; J7030; Q9967; A4216; J2405

== ENCOUNTER 2023-06-29 12:21 | Outpatient (CLI) | payer MEDICARE, OTHER, SELFPAY ==
--- NOTE | 2023-06-29 12:24 | US_ITS ---
STUDY: THYROID ULTRASOUND REASON FOR EXAM: Male, 72 years old. Palpably enlarged thyroid TECHNIQUE: Ultrasound evaluation of the thyroid was performed with real-time and static [place]-scale imaging. COMPARISON: None. FINDINGS: RIGHT LOBE: The right lobe of the thyroid gland measures 5.6 x 2.1 x 1.8 cm. There is a homogeneous echotexture. There is a 1.8 x 1.2 x 1.1 cm cystic lesion in the mid thyroid lobe. There are 2 separate solid hypoechoic well-defined nodules. Larger measures 0.8 x 1.0 x 0.4 cm, smaller measures 0.6 x 0.6 x 0.4 cm. TI-RADS points: 4. TI-RADS category: TR4. These nodules are moderately suspicious. Recommend follow-up thyroid ultrasounds at 1, 2, 3 and 5 years. LEFT LOBE: The left lobe of the thyroid gland measures 9.0 x 5.1 x 4.3 cm. There is a heterogeneous echotexture. There is a solid hypoechoic 5.8 x 5.0 x 2.9 cm nodule in the mid thyroid lobe. This nodule is solid or almost completely solid, hypoechoic, [id number], smoothly marginated and contains no echogenic foci. TI-RADS points: 7. TI-RADS category: TR5. This nodule is highly suspicious. Recommend FNA evaluation. ISTHMUS: The isthmus measures 5 mm. The regional lymph nodes are normal. US/Thyroid IMPRESSION: Enlarged thyroid, particularly the left lobe. Left lobe contains a large 5.8 cm nodule which is suspicious and should be further evaluated with FNA. 2 separate solid nodules in the left thyroid lobe, follow-up as described above Electronically Signed: David Soni MD at 13:08 EDT ,
== END 2023-06-29 23:59 | disposition home or self-care (01) ==
LOC: US 12:22
PROVIDERS: PCP Family Medicine; Referring Provider Family Medicine; Visit Provider Family Medicine
DX: E04.9 Nontoxic goiter, unspecified (principal)
CPT/HCPCS: 76536

== ENCOUNTER 2023-07-06 09:43 | Observation (INO) | payer MEDICARE, OTHER, SELFPAY ==
[2023-07-06] VITALS (14 sets, daily range): BP systolic 109–143; BP diastolic 54–84; PULSE 64–84; RESP 14–18; TEMP 36.3–36.7; O2SAT 94–98; BMI 23.0
[2023-07-06] MEDS: Lactated Ringers 1,000 ML 15 ML IV (06:44)
--- NOTE | 2023-07-06 07:30 | PROST_PTH ---
PATIENT: CHELE ACUNA LOC: MS3 U#:[id number] AGE/SX: 73/M ROOM: [facility] [place]/06/[address]: Dr. Austin Pillai MD : 1950 BED: 1 DIS: 07/07/2023 SPEC #: [id number] RECD: 07/06/23 11:49 STATUS: IRIS VALERA #: [id number] RONNIE: 07/06/23 07:[address]: Austin Pillai DEPT: SURGICAL PATHOLOGY RECD BY: Des Agee ENTERED: 07/06/23 13:01 SP TYPE: PROSTATE OTHR DR: Dr. Jef Anthony MD Tissues: Prostate, NOS Procedures: Surgery Specimen Level HEADER OPERATION: Laparoscopic robotic simple prostatectomy PRE-OP DIAGNOSIS: Urine retention, bilateral hydronephrosis, nocturia TISSUE SUBMITTED: Prostate MICROSCOPIC DIAGNOSIS Prostate, simple prostatectomy: Benign prostatic hyperplasia. Chronic inflammation and basal cell hyperplasia. SJ:sarmad 07/07/2023 MICROSCOPIC DESCRIPTION Slides are reviewed. GROSS DESCRIPTION Received in fixative is one container labeled with the patient's name and designated prostate. The specimen consists of a simple prostatectomy specimen weighing 57 gm and measuring 5.0 x 4.5 x 5.0 cm. Sections do not reveal any mass lesion. Structural Steel Erector sections are submitted in ten cassettes as follows: 1 - apical margin, 2-5 - right lobe prostate, 6-10 - left lobe prostate. / MALKA:sarmad 07/06/2023 TC:5 CPT: 44374
[2023-07-06] MEDS: Cefazolin 2 GM in 0.9% Normal Saline 100 ML IV (07:32)
[2023-07-06] MEDS: Bupivacaine Mpf 0.5% 30 ML VIAL (09:40)
--- NOTE | 2023-07-06 09:46 | HP.PCM_ITS ---
HPI - General General Date of Service: 07/06/23 Chief Complaint: BPH with retention of urine HPI Narrative CHELE ACUNA, is a 73 M who presents for simple prostatectomy he has a very large prostate with retention of urine PFS Medical History (Updated 07/06/23 @ 09:[address] Austin Pillai MD) Alcohol use Atherosclerosis of coronary artery of [place] heart without angina pectoris Benign tumor of brain Cardiology follow-up encounter Enlarged prostate Excessive bleeding Former smoker History of atrial fibrillation History of echocardiogram History of edema History of heart attack History of Holter monitoring History of renal disease History of stress test HLD (hyperlipidemia) Hypertension Indwelling urethral catheter present Injury of back New onset atrial flutter (09/09/22) Old inferior wall myocardial infarction (09/28/12) Right leg weakness Thyroid disease Wears glasses Wears partial dentures Home Medications pravastatin 20 mg tablet 20 mg PO QHS #90 tabs 08/06/22 [Rx Last Taken 07/05/23] carvedilol 6.25 mg tablet 6.25 mg PO BID #180 tabs 08/31/22 [Rx Last Taken 07/05/23] clopidogrel 75 mg tablet 75 mg PO DAILY #90 tabs 08/31/22 [Rx Last Taken 06/17/23] apixaban 2.5 mg tablet 2.5 mg PO BID #60 tabs 06/14/23 [Rx Last Taken 07/03/23] tamsulosin 0.4 mg capsule 0.4 mg PO QHS 07/01/23 [History Last Taken 07/05/23] ciprofloxacin HCl 500 mg tablet 500 mg PO BID #20 tabs 07/06/23 [Rx Last Taken Unknown] docusate sodium 100 mg capsule (Colace) 100 mg PO BID #20 caps 07/06/23 [Rx Last Taken Unknown] oxycodone 5 mg tablet 5 mg PO Q6H PRN pain 7 days #10 tabs 07/06/23 [Rx Last Taken Unknown] Allergy/AdvReac Type Severity Reaction Status Date / Time No Known Allergies Allergy Verified 07/01/23 09:18 Family History Father CAD (coronary artery disease) Mother CAD (coronary artery disease) Surgical History (Updated 07/01/23 @ 09:23 by Akanksha Tarango) History of brain surgery (10/2017) History of colonoscopy History of coronary artery stent placement (09/28/12) Social History Smoking Status: Former smoker how long ago did patient quit smokin alcohol intake: current alcohol intake frequency: a few times a week substance use type: does not use caffeine: Yes Type: coffee Number of servings: 1 Vital Signs Vital Signs Vital Signs: 07/06/23 06:46 07/06/23 06:46 Temperature 97.4 F L Temperature Source Temporal Pulse Rate 64 Respiratory Rate 18 Respiratory Pattern Normal Blood Pressure 122/72 H Blood Pressure Mean 88 Blood Pressure Source Monitor Blood Pressure Position Semi-Fowlers Blood Pressure Location Right Arm Pulse Ox 98 Oxygen Delivery Method Room Air Weight Weight: 74.843 kg Body Mass Index (BMI) 23.0
--- NOTE | 2023-07-06 09:47 | OP.PCM_ITS ---
Report of Operation Date of Procedure: 07/06/23 Pre-Operative Diagnosis: BPH with obstruction Post-Operative Diagnosis: BPH with obstruction Surgery/Procedure Performed:: Robotic Simple Prostatectomy Description of Surgical Findings:: Patient presents for a simple robotic prostatectomy. He understands that organ to do enucleation of the obstructing adenoma and then after his surgery he will need a catheter to allow this to heal. He understands is no guarantees that after the surgery he will be able to urinate spontaneously and may need to learn how to do self intermittent catheterization. We also talked about the risk of surgery which involves risk of bleeding and infection scar tissue formation bladder neck contracture. Patient was taken back to the operating room at this induction of anesthesia he underwent and intubation and was placed supine on the table. The abdomen was shaved prepped and draped in usual sterile fashion. A Valenzuela catheter was placed into the penis. I then infiltrated the skin above the umbilicus with lidocaine and made a small 5 mm incision in the skin. I then advanced a Veress needle into the peritoneal cavity and inflated the peritoneal cavity with CO2 gas. Once the pressure was at 15 mm and a nice distention of the abdomen then the camera trocar was put into the abdomen. We then looked in with the 0 degree lens and we placed a right arm trocar and left arm trocar and then an air seal s uction port high up in the abdomen to allow the accounting administrative assistant to use this for suction. The robot was then docked and then we proceeded with the dissection. The colon was mobilized from the flexure of the colon on the patient's left side once this was freed up then the bladder was distended with 300 cc of sterile normal saline. I then made an incision in the bladder in the midline once we got inside the bladder that drained out all the saline we then used 2 Justino needles to retract the bladder laterally. Once the bladder was retracted in a clamshell fashion laterally then we got inside the bladder inspected the bladder deflated the balloon left the catheter in place. We then started with scoring the mucosa circumferentially all the way around very large protruding adenomatous prostate. I then dissected between the adenoma and the bladder inferiorly working my way in the avascular enucleation plane between the adenoma and the prostate capsule, pseudocapsule all the way inferiorly I then started working my way laterally up on the right side of the prostate until I got to the anterior part freeing up the adenomatous tissue from the prostate and the anterior tissue and cutting through the bladder muscle and mucosa. We then worked our way laterally on the left side of the adenomatous tissue freeing up the adenoma from the prostate and the bladder muscle and mucosa I then came on t op of the adenoma and was able to retract the adenoma out and then split the adenoma in half and identified the catheter and then identified the urethral strip the urethral strip was then carefully transected and then the right adenomatous tissue was removed and then the left adenomatous tissue was removed all intact and all this was placed in Endo Catch bag. Then we cauterized the prostate fossa extensively to control hemostasis Floseal was placed in the prostatic fossa. I then used a 3 oh V-Loc stitch to bring down the mucosa and advance it down towards the urethra circumferentially to advance the mucosa down to the urethral stump. We then placed a Valenzuela catheter, 20 [place] into the bladder with no continuous irrigation. Irrigate out the bladder irrigate all the clots out we then closed the bladder with 2 layers using 2 oh V-Loc stitch and then a 4-0 Vicryl stitch. Both the Justino needles were removed that were retracting the bladder. We then undocked the robot we extracted the prostate adenoma through the umbilicus port we closed the air seal port with 1012 stitch and then we closed all the other ports with subcuticular stitches once the prostate was extracted to the camera port and we reapproximated the fascia and the camera port with a 0 Vicryl [id number] fashion stitch. Minimal blood loss during the case catheter was irrigated and draining well patient anesthetic was reversed and he was taken back to the PACU in good condition. Surgeon: Austin Pillai Type of Anesthesia: General Drains: 20 [place] Valenzuela Estimated Blood Loss (mL): 25 Admit VTE Documentation VTE Present on Admission: No VTE Mechan Device Prophylaxis: SCD's VTE Pharm Prophylaxis ordered?: No
--- NOTE | 2023-07-06 09:47 | PCM.DC ---
Discharge Instructions Diet Discharge Diet: No restrictions and Light diet - advance as tolerated Activity Discharge Activity: Return to Normal Activity and May Not Drive May shower in (days): 1 Dressing / Incision Catheter: Valenzuela to leg bag and Valenzuela to large bag Drain: [place] Follow Up Care Please Follow Up With: Austin Pillai MD When: Call for an appointment in 2 weeks to remove the catheter2 weeks Test Results: Test results from this visit will be discussed in further detail at your follow-up appointment, if applicable. Discharge Plan Admission Primary Reason for Your Visit: Simple prostatectomy Attending Provider: Austin Pillai Primary Care Provider: Jef Anthony Discharge Orders/Prescriptions Prescriptions: New oxycodone 5 mg tablet 5 mg PO Q6H PRN (Reason: pain) 7 Days Qty: 10 0RF ciprofloxacin HCl 500 mg tablet 500 mg PO BID Qty: 20 0RF docusate sodium [Colace] 100 mg capsule 100 mg PO BID Qty: 20 0RF Continued carvedilol 6.25 mg tablet 6.25 mg PO BID Qty: 180 3RF tamsulosin 0.4 mg capsule 0.4 mg PO QHS Patient Comments: take 1 capsule by mouth twice a day on day 1 then 1 at bedtime ONGOING pravastatin 20 mg tablet 20 mg PO QHS Qty: 90 3RF Held clopidogrel 75 mg tablet 75 mg PO DAILY Qty: 90 3RF Hold Instructions: Resume on 07/20/23. apixaban 2.5 mg tablet 2.5 mg PO BID Qty: 60 3RF Hold Instructions: Resume on 07/20/23. Referrals / Follow Up: Jef Anthony MD [Primary Care Provider] - Austin Pillai MD [Med Staff - Active Staff] - Disposition Disposition (needs filled in before D/C Order can be placed): Home, Self Care
[2023-07-06] MEDS: Ketorolac 15 MG/ML Vial IV (10:21)
[2023-07-06] MEDS: Lactated Ringers 1,000 ML 125 ML IV ×2 (12:28→20:41)
[2023-07-06] MEDS: Carvedilol 6.25 MG Tablet PO ×2 (13:18→21:04)
[2023-07-06] MEDS: Ciprofloxacin 500 MG Tablet PO ×2 (13:18→21:04)
[2023-07-06] MEDS: Tamsulosin HCl 0.4 MG Capsule PO (21:04)
[2023-07-06] MEDS: Pravastatin 20 MG Tablet PO (21:04)
[2023-07-07 00:29] VITALS: BP 103/57; PULSE 62; RESP 13; TEMP 36.3; O2SAT 95
[2023-07-07] MEDS: Lactated Ringers 1,000 ML 125 ML IV (04:21)
[2023-07-07 04:25] VITALS: BP 100/61; PULSE 74; RESP 16; TEMP 36.7; O2SAT 94
--- NOTE | 2023-07-07 06:59 | PCM.PN.BLA ---
Progress Note Status post robotic simple prostatectomy doing well he can go home today with a Valnezuela catheter and follow-up in 2 weeks in my office to have the catheter removed.
--- NOTE | 2023-07-07 09:19 | CASEMGMT ---
RN HAL NOTE: Pt being discharged and will go home w/ F/C. RN CM to room. Pt resting in bed. @ bedside. Pt and aware RN to do F/C care teaching w/them prior to discharge and they state they have no further discharge needs or concerns. Pt states he used a walker during the night when OOB, but does not usually use one @ home. He states he does have one @ home he could use if he needs it, but he does not anticipate he will need it. Corrie BSN RN CM
[2023-07-07 10:17] VITALS: BP 114/59; PULSE 75; RESP 18; TEMP 37.2; O2SAT 96
[2023-07-07] MEDS: Docusate Sodium 100 MG Capsule 200 MG PO (10:27)
[2023-07-07] MEDS: Carvedilol 6.25 MG Tablet PO (10:27)
[2023-07-07] MEDS: Ciprofloxacin 500 MG Tablet PO (10:28)
== END 2023-07-07 11:20 | disposition home or self-care (01) ==
LOC: SDC 10:09 → MS3 10:09
PROVIDERS: Admitting Provider Urology; PCP Family Medicine; Referring Provider Urology; Visit Provider Urology
PROC: 0VT04ZZ Resection of Prostate, Percutaneous Endoscopic Approach (ICD-10-PCS; CPT 55867; principal; 2023-07-06 07:10)
DX: N40.1 Benign prostatic hyperplasia with lower urinary tract symptoms (principal); I25.10 Atherosclerotic heart disease of native coronary artery without angina pectoris; I10 Essential (primary) hypertension; E78.5 Hyperlipidemia, unspecified; Z79.01 Long term (current) use of anticoagulants; Z87.891 Personal history of nicotine dependence; Z79.02 Long term (current) use of antithrombotics/antiplatelets; N13.8 Other obstructive and reflux uropathy; R33.8 Other retention of urine; Z79.899 Other long term (current) drug therapy; I25.2 Old myocardial infarction; Z96.0 Presence of urogenital implants
CPT/HCPCS: 55867; 00840; 36415; 86850; 86900; 86901; 88309; 96360; 96361; 99221; J7120; G0378; J2405

== ENCOUNTER → 2023-07-26 | Outpatient (CLI) | payer MEDICARE, OTHER, SELFPAY ==
--- NOTE | 2023-07-26 | FLU_PTH ---
PATIENT: CHELE ACUNA [facility] U#:[id number] AGE/SX: 73/M ROOM: RE07/26/[address]: Dr. Prudencio Mackenzie MD : 1950 BED: DIS: 07/26/2023 SPEC #: [id number] RECD: 07/26/23 15:35 STATUS: IRIS RELj #: [id number] RONNIE: 07/26/23 00:[address]: Prudencio Mackenzie DEPT: CYTOLOGY RECD BY: Anna Leal ENTERED: 07/27/23 10:43 SP TYPE: Fluid OTHR DR: Dr. Jef Anthony MD Tissues: A - Thyroid gland, NOS B - Thyroid gland, NOS Procedures: Special Stain Group II Surgery Specimen Level IV Cytospin Fluid Cytology Other HEADER OPERATION: Fine needle aspiration left thyroid PRE-OP DIAGNOSIS: Abnormal thyroid ultrasound TISSUE SUBMITTED: A - FNA left thyroid fluid, B - FNA left thyroid x12 slides DIAGNOSIS CYTOLOGY A. Left thyroid fluid, fine needle aspiration (cytospin and cell block): Negative for malignant cells. Bloody specimen. B. Left thyroid, fine needle aspiration (smears): Paucicellular specimen, rare atypical follicular cells of undetermined significance ([place] Category III). See comment. SJ:sarmad 07/28/2023 COMMENT B. Correlation with clinical, radiologic findings and appropriate follow up are necessary. Repeat FNA is suggested if clinically indicated. The [place] System for thyroid diagnostic categorization was used in the evaluation of this case. CYTOLOGY STUDY Slides are reviewed. CYTOLOGY GROSS A - Received is 30 ml of dark brown cloudy fluid labeled with the patient's name and and designated per the requisition as left thyroid. Submitted for cytology preparation including cell block. B - Received are 12 smears labeled with the patient's name and designated per the requisition as left thyroid. Submitted for staining. / sarmad 07/27/2023 TC:5 CPT: 81274 x2, [id number]
== END | disposition home or self-care (01) ==
LOC: LABSPEC 15:59
PROVIDERS: PCP Family Medicine; Referring Provider Surgery; Visit Provider Surgery
DX: R94.6 Abnormal results of thyroid function studies (principal)
CPT/HCPCS: 88108; 88161; 88305; 88313

== ENCOUNTER → 2023-11-11 | Outpatient (CLI) | payer MEDICARE, OTHER, SELFPAY ==
--- NOTE | 2023-11-11 12:40 | ECHOD_ITS ---
Version 2 Reason For Study: ASHD Procedure This was a 2D Doppler, Color Flow transthoracic echocardiogram. Exam performed in department. Left Ventricle Normal LV size. The estimated ejection fraction is 45 %. Stage 1 diastolic dysfunction. There is mild global hypokinesis of the left ventricle. Right Ventricle Normal RV size. Normal systolic function. Atria The left atrium is moderately enlarged. Normal right atrium. Mitral Valve Normal mitral valve. Mild (1+) mitral valve insufficiency. Tricuspid Valve Normal tricuspid valve. Mild tricuspid valve insufficiency. Aortic Valve Trisinus/trileaflet aortic valve. Mild focal aortic valve calcification. Mild (1+) aortic valve insufficiency. Pulmonic Valve Normal pulmonic valve. Great Vessels Normal aortic root. The pulmonary artery is normal size. Normal inferior vena cava. Pericardium/Pleural No pericardial effusion. MMode/2D Measurements & Calculations LVIDd: 6.2 cm IVSd: 1.1 cm Ao root diam: 3.5 cm LVIDs: 5.4 cm LVPWd: 0.98 cm RVDd: 4.7 cm FS: 12.8 % LAV(MOD-bp): 97.1 ml LVAd ap4: 45.4 cm2 SV(MOD-sp4): 73.7 ml LAV(MOD-bp) Indexed: 48.2 ml/m2 LVLd ap4: 9.6 cm LAV(MOD-sp2): 104.5 ml EDV(MOD-sp4): 176.8 ml LAV(MOD-sp4): 86.7 ml EDV(sp4-el): 182.5 ml LVAs ap4: 32.1 cm2 LVLs ap4: 8.4 cm ESV(MOD-sp4): 103.0 ml ESV(sp4-el): 104.7 ml EF(MOD-sp4): 41.7 % EF(sp4-el): 42.6 % SV(sp4-el): 77.7 ml LA A4 area: 25.8 cm2 LA dimension(2D): 5.3 cm RA A4 area: 16.8 cm2 TAPSE: 2.7 cm Time Measurements MV dec time: 0.26 sec Doppler Measurements & Calculations MV E max david: 43.3 cm/sec Lat Peak E' David: 5.0 cm/sec Med Peak E' David: 4.5 cm/sec MV A max david: 71.8 cm/sec E/E' lat: 8.7 E/E' med: 9.7 MV E/A: 0.60 Ao V2 max: 125.3 cm/sec AI max david: 439.1 cm/sec MV dec slope: 168.8 cm/sec2 Ao max P.3 mmHg AI max P.1 mmHg Ao V2 mean: 89.3 cm/sec Ao mean P.4 mmHg AI dec slope: 173.2 cm/sec2 Ao V2 VTI: 29.4 cm AI P1/2t: 742.4 msec AV (velocity ratio): 0.78 LV V1 max: 96.6 cm/sec PA V2 max: 84.0 cm/sec TR max david: 222.5 cm/sec LV V1 max P.7 mmHg TR max P.8 mmHg LV V1 mean P.9 mmHg LV V1 mean: 64.7 cm/sec LV V1 VTI: 23.0 cm ECHO/Echo Complete Interpretation Summary Normal LV size. The estimated ejection fraction is 45 %. The left atrium is moderately enlarged. Mild (1+) aortic valve insufficiency. Stage 1 diastolic dysfunction. Mild tricuspid valve insufficiency. Probable splenomegaly Compared to previous study, the left ventricular systolic function has improved.. Ordering Physician: Brennan Jackson Referring Physician: Jef Anthony Performed By: Barbara Mcgill, FLORIAN, RVT
== END | disposition home or self-care (01) ==
LOC: CVS 12:39
PROVIDERS: PCP Family Medicine; Referring Provider Internal Medicine Cardiovascular Disease; Visit Provider Internal Medicine Cardiovascular Disease
DX: I25.10 Atherosclerotic heart disease of native coronary artery without angina pectoris (principal); I48.92 Unspecified atrial flutter; Z95.5 Presence of coronary angioplasty implant and graft
CPT/HCPCS: 93306

== ENCOUNTER → 2023-12-05 | Outpatient (CLI) | payer MEDICARE, OTHER, SELFPAY ==
--- OUTSIDE RECORDS SUMMARY | 2023-12-05 09:42 | XMS RPT_ITS | CCD ---
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 Name Role Phone Arline RAMIREZ, Cathy Perez Unavailable Unavailable Juana Anthony Unavailable Gurvinder Anthony MD Primary Care Provider [phone] Gurvinder Anthony MD Unavailable Brennan Jackson Unavailable Brennan Jackson MD Unavailable PROVIDER, UNKNOWN Admitting Unavailable PROVIDER, UNKNOWN Attending Unavailable ANTHONY, GURVINDER A Primary Care Unavailable PRUDENCIO MACKENZIE Attending Unavailable ANTHONY, GURVINDER A Primary Care Unavailable PRUDENCIO MACKENZIE Attending Unavailable ANTHONY, GURVINDER A Primary Care Unavailable AVRILPRUDENCIO GROSS P Attending Unavailable ANTHONY, GURVINDER A Primary Care Unavailable AVRILPRUDENCIO GROSS P Attending Unavailable ANTHONY, GURVINDER A Primary Care Unavailable ANTHONY, GURVINDER A Primary Care Unavailable IAM AMATO JUNIOR Referring Unavaila ble ANTHONY, GURVINDER A Primary Care Unavailable COLLIN, NEERAJ Referring Unavailable COLLIN, NEERAJ Referring Unavailable ANTHONY, GURVINDER A Primary Care Unavailable AVRILPRUDENCIO GROSS P Referring Unavailable ANTHONY, GURVINDER A Primary Care Unavailable COLLIN, NEERAJ Attending Unavailable COLLIN, NEERAJ Referring Unavailable ANTHONY, GURVINDER A Primary Care Unavailable Medications Completed/Discontinued Medications Medication Drug Class(es) Dates Sig (Normalized) Sig (Original) aspirin 81 mg oral tablet (11 sources) Nonsteroidal Anti-inflammatory Drug Start: 10-13-2012 take 1 tablet by mouth once daily ASPIRIN 81 MG TABS One tablet by mouth daily ASPIRIN [id number] Brennan Jackson MD Problems Active Problems Problem Classification Problem Date Documented Da te Episodic/Chronic Acute and unspecified renal failure (1 source) Acute kidney failure, unspecified; Translations: [SELAM (acute kidney injury) (HCC)] Onset: 09-27-2023 Episodic Acute myocardial infarction (2 sources) 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; Translations: [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] Onset: 10-10-2012 10-10-2012 Chronic Cancer; other and unspecified primary (1 source) Malignant tumor of mediastinum; Translations: [Malignant neoplasm of mediastinum, part unspecified] 10-12-2023 Chronic Cancer; other and unspecified primary (1 source) Malignant neoplasm of mediastinum, part unspecified; Translations: [Malignant neoplasm of mediastinum (HCC)] Onset: 10-12-2023 Chronic Cardiac dysrhythmias (2 sources) Ventricular premature beats; Translations: [Ventricular premature depolarization] Onset: 10-02-2012 10-02-2012 Chronic Coronary atherosclerosis and other heart disease (4 sources) Coronary arteriosclerosis; Translations: [Atherosclerotic heart disease of [place] coronary artery without angina pectoris] Onset: 10-10-2012 10-10-2012 Chronic Deficiency and other anemia (1 source) Anemia, unspecified; Translations: [Anemia, unspecified type] Onset: 09-27-2023 Episodic Disorders of lipid metabolism (6 sources) Hyperlipidemia; Translations: [Hyperlipidemia, unspecified] Onset: 10-10-2012 Resolved: 05-26-2015 05-26-2015 Chronic Other and unspecified benign neoplasm (7 sources) Acoustic neuroma; Translations: [Benign neoplasm of cranial nerves] Onset: 11-05-2017 11-07-2017 Chronic Other circulatory disease (2 sources) Peripheral arterial occlusive disease; Translations: [Other disorders of arteries, arterioles and capillaries in diseases classified elsewhere] Onset: 10-02-2015 10-02-2015 Chronic Other circulatory disease (1 source) Vascular disorder; Translations: [Other disorders of arteries, arterioles and capillaries in diseases classified elsewhere] 10-12-2023 Chronic Other circulatory disease (1 source) Other disorders of arteries, arterioles and capillaries in diseases classified elsewhere; Translations: [Other disorders of arteries, arterioles and capillaries in diseases classified elsewhere (HCC)] Onset: 10-13-2023 Chronic Other ear and sense organ disorders (7 sources) Sensorineural hearing loss, bilateral; Translations: [Sensorineural hearing loss, bilateral] Onset: 10-05-2017 10-05-2017 Chronic Other hereditary and degenerative nervous system conditions (7 sources) Cerebellar ataxia; 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, unspecified] Onset: 10-05-2017 10-05-2017 Chronic Other screening for suspected conditions (not mental disorders or infectious disease) (1 source) Encounter for screening for lipoid disorders; Translations: [Screening for lipid disorders] Onset: 09-27-2023 Episodic Thyroid disorders (10 sources) Multinodular goiter; Translations: [Nontoxic multinodular goiter] Onset: 08-29-2023 07-19-2023 Chronic Unclassified (2 sources) History of clinical finding in subject; Translations: [Personal history of nicotine dependence] Onset: 10-02-2015 10-02-2015 Unclassified (2 sources) Percutaneous transluminal coronary angioplasty ; Translations: [Coronary angioplasty status] Onset: 10-10-2012 10-10-2012 Unclassified (2 sources) Preoperative cardiovascular examination ; Translations: [Encounter for preprocedural cardiovascular examination] Onset: 10-13-2017 10-13-2017 Unclassified (7 sources) Asymmetrical hearing loss; Translations: [Asymmetrical hearing loss of both ears] Onset: 10-05-2017 10-05-2017 Past or Other Problems Problem Classification Problem Date Documented Da te Episodic/Chronic Other aftercare (2 sources) Other long-term (current) drug therapy; Translations: [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] Onset: 10-25-2012 05-26-2015 Episodic Unclassified (2 sources) Long-term drug therapy; Translations: [Long-term (current) use of other medications] Onset: 10-25-2012 10-25-2012 Unclassified (4 sources) Screening for disorder ; Translations: [Encounter for screening for other disorder] Onset: 10-02-2015 Resolved: 11-04-2016 10-02-2015 Results Test Name Value Interpretation Reference Range Facil it Vital Signs Date Time Vital Sign Value Performing Clinician Facility 10-12-2023 09:53-0500 Body height 180.3 cm Neeraj Hull MD Work Phone: [facility] 10-12-2023 09:53-0500 Body weight 81.65 kg Neeraj Hull MD Work Phone: [facility] 10-12-2023 09:53-0500 Diastolic blood pressure 85 mm[Hg] Neeraj Hull MD Work Phone: [facility] 10-12-2023 09:53-0500 Heart rate 64 /min Neeraj Hull MD Work Phone: [facility] 10-12-2023 09:53-0500 Systolic blood pressure 150 mm[Hg] Neeraj Hull MD Work Phone: [facility] 09-05-2023 13:56-0400 Body temperature 98.71 [degF] Prudencio Mackenzie MD Work Phone: [facility] 09-05-2023 13:56-0400 Diastolic blood pressure 80 mm[Hg] Prudencio Mackenzie MD Work Phone: [facility] 09-05-2023 13:56-0400 Heart rate 75 /min Prudencio Mackenzie MD Work Phone: [facility] 09-05-2023 13:56-0400 SaO2% (BldA) [Mass fraction] 98 % Prudencio Mackenzie MD Work Phone: [facility] 09-05-2023 13:56-0400 Systolic blood pressure 132 mm[Hg] Prudencio Mackenzie MD Work Phone: [facility] 07-19-2023 14:27-0400 Body height 180.3 cm Prudencio Mackenzie MD Work Phone: [facility] 07-19-2023 14:27-0400 Body temperature 97.59 [degF] Prudencio Mackenzie MD Work Phone: [facility] 07-19-2023 14:27-0400 Body weight 75.39 kg Prudencio Mackenzie MD Work Phone: [facility] 07-19-2023 14:27-0400 Diastolic blood pressure 76 mm[Hg] Prudencio Mackenzie MD Work Phone: [facility] 07-19-2023 14:27-0400 Heart rate 106 /min Prudencio Mackenzie MD Work Phone: [facility] 07-19-2023 14:27-0400 Respiratory rate 16 /min Prudencio Mackenzie MD Work Phone: [facility] 07-19-2023 14:27-0400 SaO2% (BldA) [Mass fraction] 98 % Prudencio Mackenzie MD Work Phone: [facility] 07-19-2023 14:27-0400 Systolic blood pressure 122 mm[Hg] Prudencio Mackenzie MD Work Phone: [facility] 10-13-2017 09:57-0500 BMI (Body Mass Index) 25.85 kg/m2 [facility] Work Phone: 10-13-2017 09:57-0500 BP Diastolic 60 mm[Hg] [facility] Work Phone: 10-13-2017 09:57-0500 BP Systolic 120 mm[Hg] Juana Anthony [facility] Work Phone: 10-13-2017 09:57-0500 Height 182.88 cm Juana [facility] Work Phone: 10-13-2017 09:57-0500 Pulse (Heart Rate) 60 /min [facility] Work Phone: 10-13-2017 09:57-0500 Respiratory Rate 20 /min [facility] Work Phone: 10-13-2017 09:57-0500 Weight 86.46 kg Ju[facility] Work Phone: 11-04-2016 15:06-0500 BSA (Body Surface Area) 2.07 m2 [facility] Work Phone: Encounters Encounter Date Encounter Type Care Provider Facility Start: 10-17-2023 End: 10-18-2023 ambulatory GURVINDER ANTHONY Facility:[facility] Start: 10-13-2023 End: 10-13-2023 ambulatory GURVINDER ANTHONY Facility:[facility] Start: 10-12-2023 End: 10-12-2023 ambulatory NEERAJ COLLIN Facility:[facility] Start: 10-12-2023 End: 10-12-2023 Patient encounter procedure Neeraj Hull MD Work Phone: Endocrine Surgery Procedures Date Procedure Procedure Detail Performing Clinician Start: 09-27-2023 Lipid 1996 panel - S sharon or Plasma Neeraj Hull MD Work Phone: Start: 07-26-2023 US THYROID BIOPSY LE FT (POC) SURG USE ONLY Prudencio Mackenzie MD Work Phone: Start: 10-13-2017 End: 10-13-2017 Ecg routine ecg w/least 12 lds w/i&r Brennan Jackson MD Start: 05-26-2017 Colonoscopy Prudencio gross MD Work Phone: Start: 05-02-2017 End: 05-02-2017 *Hepatic Function Panel Joey Leonard Start: 05-02-2017 End: 05-02-2017 Lipid 1996 panel - Serum or Plasma Brennan Jackson MD Start: 11-04-2016 End: 11-04-2016 XOCHITL Jackson MD Start: 11-04-2016 End: 11-04-2016 Follow Up Appt 6 months Joey Leonard Start: 10-04-2016 End: 11-05-2016 *Hepatic Function Panel Joey Leonard Start: 10-04-2016 End: 11-05-2016 Lipid Anurag panel - Serum or Plasma Brennan Jackson MD Start: 04-06-2016 End: 04-06-2016 XOCHITL Jackson MD Start: 04-06-2016 End: 04-06-2016 Follow Up Appt 6 months Joey Leonard Start: 03-18-2016 End: 04-05-2016 *Hepatic Function Panel Joey Leonard Start: 03-18-2016 End: 04-05-2016 Lipid 1996 panel - Serum or Plasma Brennan Jackson MD Start: 09-18-2015 End: 10-09-2015 Carotid duplex Brennan Jackson MD Start: 09-18-2015 End: 09-18-2015 MOLDER CLOSED MOLDS Brennan Jackson MD Start: 09-18-2015 End: 09-19-2015 Documentation [...] Panel Joey Leonard Start: 03-18-2015 End: 03-18-2015 MOLDER CLOSED MOLDS Brennan Jackson MD Start: 03-18-2015 End: 03-18-2015 Follow Up Appt 6 months Joey Leonard Start: 03-18-2015 End: 09-17-2015 Lipid 1996 panel - Serum or Plasma Brennan Jackson MD Start: 02-26-2015 End: 03-18-2015 *Hepatic Function Panel Joey Leonard Start: 02-26-2015 End: 03-18-2015 Lipid 1996 panel - Serum or Plasma Brennan Jackson MD Start: 08-30-2014 End: 08-30-2014 *MIAN Jackson MD Start: 08-30-2014 End: 08-30-2014 XOCHITL [...] months Joey Leonard Start: 02-28-2014 End: 03-07-2014 *MIAN Jackson MD Start: 02-28-2014 End: 03-07-2014 Thyrotropin [...] Panel Joey Leonard Start: 01-24-2013 End: 01-24-2013 XOCHITL Jackson MD Start: 01-24-2013 End: 01-24-2013 Ecg [...] 1996 panel - Serum or Plasma Brennan Jacskon MD Start: 10-02-2012 End: 10-25-2012 24 hour holter monitor Brennan Jackson MD Plan of Treatment Date Care Activity Detail Author Start: 09-27-2028 Lipid 1996 panel - Serum or Plasma Lipid Screening [facility] Start: 09-27-2026 Diabetes Screening Diabetes Screenin g [facility] Start: 11-17-2023 Shingrix Vaccine (2 of 2) Shingrix Vaccine (2 of 2) [facility] Start: 10-22-2023 Covid-19 Vaccine ( season) Covid-19 Vaccine ( season) [facility] Start: 10-12-2023 End: 10-12-2024 US CAROTID ARTERIES [facility]LEX [facility] US CAROTID ARTERIES [facility]LEX [facility] Vascular Lab Routine Multinodular goiter Other disorders of arteries, arterioles and capillaries in diseases classified elsewhere (HCC) Expected: 10/12/2023, Expires: 10/12/2024 [facility] Work Phone: Immunizations Immunization Date Immunization Notes Care Provider Fa sabino 11-18-2017 influenza, high dose seasonal, preservative-free Prudencio Mackenzie MD Work Phone: [facility] 11-18-2017 pneumococcal polysaccharide vaccine, 23 valent Prudencio Mackenzie MD Work Phone: [facility] Payers Date Payer Category Payer Medicare MEDICARE MEDICAR E A AND B [id number] 2014-Present [phone] [place] [address] Medicare [id number] 2014 Medicare [id number] 2014 Unknown [employer]IC[employer]ANS [employer] SUPPLEMENT [id number] 2014-Present [phone] [address] [place] [id number] Indemnity [id number] 2014 Unknown [id number] Social History Date Type Detail Facility Start: [facility]23 [facility] End: 05-26-2000 History of tobacco use Current smoker [facility] End: 05-26-2000 History of tobacco use Cigarette Smoker [facility] Start: 07-19-2023 Tobacco use and exposure Smoke less tobacco non-user [facility] Start: 07-19-2023 End: 10-12-2023 Alcohol intake Current drinker of alcohol (finding) [facility] Start: 07-19-2023 End: 10-12-2023 History of Social function [facility] Start: 07-19-2023 End: 10-12-2023 Tobacco use panel [facility] National Score (1-10 0), lower number is lower risk 64 [facility] Start: 07-19-2023 Alcohol Comment 1 drink per da y /5 times per week [facility] Start: 1950 Sex Assigned At Not on file [facility] Medical Equipment Procedure Code Equipment Code Equipment Original Text Equipment Identifier Dates Cement Hydroset Calcium Phosphate Bone Injectable Biocompatible - [id number] Start: 11-04-2017 Plate [place] Neuro Iii 42mm Small Round .3mm Bone Closed Outer Frame - [id number] Start: 11-04-2017 Screw 1.5mm 4mm Bone Self Drill Cross Pin Craniomaxillofacial - [id number] Start: 11-04-2017 Clinical Notes 07-19-2023 to 10-12-2023 Neeraj Hull MD - 10/12/2023 9:59 AM ESTPatient InstructionsTelephone Encounter - Mary Jo Drew - 09/26/2023 9:56 AM EDTTelephone Encounter - Sandra Kaur - 09/12/2023 3:42 PM EDT Note Date & Type Note Facility 10-12-2023 Note HNO ID: [id number] Author: Yasmin Mclean RT(R) Service: ? Author Type: Chemical Milling Processor Type: Progress Notes Filed: 10/12/2023 1:13 PM Note Text: Radiology Service Progress Note PATIENT NAME: Wiliam Parker DATE OF SERVICE: October 12, 2023 TIME: 1:12 PM PATIENT IDENTITY VERIFICATION COMPLETED USING TWO (2) IDENTIFIERS: Name and Date of confirmed by patient verbally. FALL SCREENING: Has the patient had 2 falls in the last year or 1 fall with injury or currently using an Ambulatory Assistive Device (Walker, Cane, Wheelchair, Crutches, etc.)? No PATIENT GENDER DATA: Male PATIENT RELEVANT IMPLANT DATA REVIEWED: Yes RADIOLOGY DEPARTMENT: CT; Exam(s) Completed: Chest and Neck PERIPHERAL IV DATA: Not applicable SIGNED BY: RT Stan(R) October 12, 2023 1:12 PM [facility] 10-12-2023 Note HNO ID: [id number] Author: Neeraj Hull MD Service: ? Author Type: Physician Type: Progress Notes Filed: 10/12/2023 10:35 AM Note Text: Endocrinology Metabolism [facility] Neeraj Hull M.D. Section of Endocrine Surgery and Advanced Laparoscopic Surgery [address] [place] [address] ENDOCRINE SURGERY NEW CONSULTATION NAME: Wiliam Parker [facility] NO: [id number] : 1950 Surgeon: Dr. Neeraj Hull REFERRING PROVIDER: Pr[address] [facility] [address] The patient was referred by the above provider and my findings and recommendations will be communicated by way of the shared medical record. HPI: The patient was evaluated today for a consultation regarding Multinodular goiter. 08/29/23: thyroid FNA FINAL DIAGNOSIS A - THYROID, LEFT MID, FINE NEEDLE ASPIRATION: Atypia of undetermined significance. Follicular cells with focal cytologic atypia. Afirma was suspicious. PMH: PAST MEDICAL HISTORY Diagnosis Date Acute [place] (HCC) CAD (coronary artery disease) Disorder of thyroid Heart attack (HCC) 09/28/2012 Hyperlipidemia Hypertension Kidney disease kidney stones Mass of abdomen lump by naval Snoring Ventricular ectopy PSH: PAST SURGICAL HISTORY Procedure Laterality Date COLONOSCOPY FLX DX W/COLLJ SPEC WHEN PFRMD N/A 05/26/2017 Colonoscopy-repeat 5 years LEFT HEART CATH,PERCUTANEOUS 09/28/2012 two stents placed RCA PAST SURGICAL HISTORY OF 10/07/2012 stent x2 after [place], Dr. Willie Li, [facility] PAST SURGICAL HISTORY OF 10/2017 benign brain tumor removal PAST SURGICAL HISTORY OF 2023 prostate reduction THYROID FINE NEEDLE ASPIRATION 07/26/2023 Ultrasound Guided Fine Needle Aspiration Thyroid left Medications: Current Outpatient Medications on File Prior to Visit Medication Sig clopidogrel (PLAVIX) 75 mg tablet Take 1 tablet by mouth once daily. lisinopril (ZESTRIL, PRINIVIL) 20 mg tablet Take 20 mg by mouth once daily. pravastatin (PRAVACHOL) 20 mg tablet Take 20 mg by mouth once daily. carvedilol (COREG) 6.25 mg tablet Take 1 tablet by mouth twice daily. aspirin 81 mg chewable tablet Take 81 mg by mouth once daily. FOLIC ACID/MULTIVIT-MIN/LUTEIN (CENTRUM SILVER ORAL) Take 1 tablet by mouth once daily. No current facility-administered medications on file prior to visit. All: ALLERGIES No Known Allergies SH: Social History Tobacco Use Smoking status: Former Types: Cigarettes Quit date: 05/26/2000 Years since quittin.3 Smokeless tobacco: Never Vaping Use Vaping Use: Never used Substance Use Topics Alcohol use: Yes Comment: 1 drink per day /5 times per week Drug use: No FH: Pertinent history above; otherwise, non-contributory REVIEW OF SYSTEMS: GENERAL: Well-appearing, no malaise or fevers PHYSICAL EXAM: On physical exam, Wiliam Parker is well appearing, alert, and oriented and appears euthyroid. On inspection, the skin over the anterior neck is smooth, no mass is visualized. Palpation revealed no thyroid enlargement. No lymphadenopathy was palpated on either side of the neck. ULTRASOUND EXAMINATION: Ultrasound examination was performed in the office today. This demonstrated a . The largest nodule was in the left lobe measuring >4 cm, was isooechoic and was Solid. The lower border of the nodule could not be seen. There were plaques in both carotid arteries. No worrisome lymphadenopathy was appreciated in either bilateral central neck or lateral jugular chain compartments. A fine needle aspiration biopsy not performed. LABS: TSH Date Value Ref Range Status 09/27/2023 1.000 0.270 - 4.200 mIU/L Final Calcium, Total Date Value Ref Range Status 09/27/2023 9.0 8.5 - 10.2 mg/dL Final ASSESSMENT: In summary, Wiliam Parker has Multinodular goiter with an indeterminate FNA and suspicious Afirma. PLAN: He needs total thyroidectomy. He will need PACC claerance preop.Will order a CT neck/chest and carotid duplex preop. He will be seeing his interventional radiologist in 2 weeks and I will request a note of clearance. I appreciate being involved in the care of your patient, and please feel free to contact me should you have additional questions. I spent a total of 60 minutes on the date of the service which included preparing to see the patient, [id number] patient care, completing clinical documentation, obtaining and/or reviewing separately obtained history, performing a medically appropriate examination, counseling and educating the patient/family/caregiver, ordering medications, tests, or procedures, communicating with other HCPs (not separately reported), independently interpreting results (not separately reported), communicating results to the patient/family/caregiver, and care coordination (not separately reported). Sincerely, Neeraj Hull MD (more content not included)... [facility] 10-12-2023 History of Presen t illness Narrative Endocrinology Metabolism [facility] Neeraj Hull M.D. Section of Endocrine Surgery and Advanced Laparoscopic Surgery [address] [place] [address], [facility] [address] [place] [address] ENDOCRINE SURGERY NEW CONSULTATION NAME: Wiliam Parker [facility] NO: [id number] : 1950 Surgeon: Dr. Neeraj Hull REFERRING PROVIDER: Prudencio Mackenzie III [address] [facility] [address] The patient was referred by the above provider and my findings and recommendations will be communicated by way of the shared medical record. HPI: The patient was evaluated today for a consultation regarding Multinodular goiter. 08/29/23: thyroid FNA FINAL DIAGNOSIS A - THYROID, LEFT MID, FINE NEEDLE ASPIRATION: Atypia of undetermined significance. Follicular cells with focal cytologic atypia. Afirma was suspicious. PMH: PAST MEDICAL HISTORY Diagnosis Date Acute [place] (HCC) CAD (coronary artery disease) Disorder of thyroid Heart attack (HCC) 09/28/2012 Hyperlipidemia Hypertension Kidney disease kidney stones Mass of abdomen lump by naval Snoring Ventricular ectopy PSH: PAST SURGICAL HISTORY Procedure Laterality Date COLONOSCOPY FLX DX W/COLLJ SPEC WHEN PFRMD N/A 05/26/2017 Colonoscopy-repeat 5 years LEFT HEART CATH,PERCUTANEOUS 09/28/2012 two stents placed RCA PAST SURGICAL HISTORY OF 10/07/2012 stent x2 after TX, Dr. Willie Li, [facility] PAST SURGICAL HISTORY OF 10/2017 benign brain tumor removal PAST SURGICAL HISTORY OF 2023 prostate reduction THYROID FINE NEEDLE ASPIRATION 07/26/2023 Ultrasound Guided Fine Needle Aspiration Thyroid left Medications: Current Outpatient Medications on File Prior to Visit Medication Sig clopidogrel (PLAVIX) 75 mg tablet Take 1 tablet by mouth once daily. lisinopril (ZESTRIL, PRINIVIL) 20 mg tablet Take 20 mg by mouth once daily. pravastatin (PRAVACHOL) 20 mg tablet Take 20 mg by mouth once daily. carvedilol (COREG) 6.25 mg tablet Take 1 tablet by mouth twice daily. aspirin 81 mg chewable tablet Take 81 mg by mouth once daily. FOLIC ACID/MULTIVIT-MIN/LUTEIN (CENTRUM SILVER ORAL) Take 1 tablet by mouth once daily. No current facility-administered medications on file prior to visit. All: ALLERGIES No Known Allergies SH: Social History Tobacco Use Smoking status: Former Types: Cigarettes Quit date: 05/26/2000 Years since quittin.3 Smokeless tobacco: Never Vaping Use Vaping Use: Never used Substance Use Topics Alcohol use: Yes Comment: 1 drink per day /5 times per week Drug use: No FH: Pertinent history above; otherwise, non-contributory REVIEW OF SYSTEMS: GENERAL: Well-appearing, no malaise or fevers PHYSICAL EXAM: On physical exam, Wiliam Parker is well appearing, alert, and oriented and appears euthyroid. On inspection, the skin over the anterior neck is smooth, no mass is visualized. Palpation revealed no thyroid enlargement. No lymphadenopathy was palpated on either side of the neck. ULTRASOUND EXAMINATION: Ultrasound examination was performed in the office today. This demonstrated a . The largest nodule was in the left lobe measuring >4 cm, was isooechoic and was Solid. The lower border of the nodule could not be seen. There were plaques in both carotid arteries. No worrisome lymphadenopathy was appreciated in either bilateral central neck or lateral jugular chain compartments. A fine needle aspiration biopsy not performed. LABS: TSH Date Value Ref Range Status 09/27/2023 1.000 0.270 - 4.200 mIU/L Final Calcium, Total Date Value Ref Range Status 09/27/2023 9.0 8.5 - 10.2 mg/dL Final ASSESSMENT: In summary, Wiliam Parker has Multinodular goiter with an indeterminate FNA and suspicious Afirma. PLAN: He needs total thyroidectomy. He will need PACC claerance preop.Will order a CT neck/chest and carotid duplex preop. He will be seeing his interventional radiologist in 2 weeks and I will request a note of clearance. I appreciate being involved in the care of your patient, and please feel free to contact me should you have additional questions. I spent a total of 60 minutes on the date of the service which included preparing to see the patient, [id number] patient care, completing clinical documentation, obtaining and/or reviewing separately obtained history, performing a medically appropriate examination, counseling and educating the patient/family/caregiver, ordering medications, tests, or procedures, communicating with other HCPs (not separately reported), independently interpreting results (not separately reported), communicating results to the patient/family/caregiver, and care coordination (not separately reported). Sincerely, Neeraj Hull MD 10/12/2023 CC: Prudencio Mackenzie III [address] [facility] [id number] documented in this encounter [facility] 10-12-2023 Instructions Joseph Knight Ma 10/12/2023 9:50 AM EST Thank you for choosing the [facility] Department of Endocrinology, Diabetes and Metabolism. Did you know that you need to call 48 hours in advance of your scheduled visit, if you are unable to make your appointment? The Endocrinology and Metabolism [facility] thanks you for your commitment, because patients not showing to their appointment results in a lost opportunity for patients to receive [facility] health care at the [facility]. To Cancel an appointment, please choose one of the following: - Call the Appointment Call Center at [phone] - From [employer], Go to Appointments - Cancel Appts If cancelling, consider your need to reschedule to prevent further delays in your care. To Schedule an appointment, please choose one of the following: - Call the Appointment Call Center at [phone] - From [employer], Go to Appointments - Request an Appt documented in this encounter [facility] 09-26-2023 Miscellaneous Notes 09/26/2023 INTAKE COMPLETED-US COMPLETED-TSH NEEDED ENDOCRINE SURGERY PATIENT WORKSHEET Initial Call Date: September 26, 2023 Reason for Consult/ Referral: Goiter PATIENT DEMOGRAPHICS Name: Wiliam Parker [facility]#: [id number] : 1950 AGE: [age] year old Contact Numbers: Home: (home) Work: There is no work phone number on file. PATIENT PHYSICIAN INFORMATION Referring Doctor: Address: Phone: [employer]: Address: Phone: PCP: Gurvinder Anthony (David) [address] [address] PAST TREATMENT Office notes: SEE EPIC Medications: NONE THAT APPLY Pre-Visit Testing STUDY/TEST DATE ORDERED/REQUESTED DATE RECEIVED/COMPLETED ENTIRE PANEL TSH 09/26/2023 FREE T4 FREE T3 Imaging Reports: SEE [facility] CD of Images: SEE EPIC FNA: yes: 07/20,09/19 FNA Slides: FNA performed at [facility] facility Has the patient ever had thyroid or parathyroid surgery before: No Operative Reports: NONE AVAILABLE Pathology Reports: SEE EPIC documented in this encounter [facility] 09-12-2023 Miscellaneous Notes Patient scheduled accordingly [employer] I have called the patient and spoke to him. I am going to get him to see Dr. Hull at the [facility]. His affirm test was greater than 50% given the fact that he has a nodule that is larger than 5 cm there is a good chance he may need to have a limited neck dissection. The consultation order for Dr. Hull has been placed Afirma results for patient in scanned documents. Genomic sequencing Scan on 09/10/2023 9:59 AM by ProviderCharanjit PA-C: Miscellaneous Lab documented in this encounter [facility] 09-09-2023 Miscellaneous Notes Called Lab Client Services and spoke with Nani. She advised that the Afirma testing can take 16 days to be returned. Called Wiliam and advised regarding above. He voiced understanding. Marta Jo RN Patient left voicemail requesting call from Dr. Mackenzie's office for thyroid results. Please advise and call patient at [phone] Thank you Sandra [employer] Patient called in requesting results from afirma testing for thyroid. Please advise and contact patient. Chloe Anthony LPN documented in this encounter [facility] 09-05-2023 Note HNO ID: [id number] Author: Prudencio Mackenzie MD Service: ? Author Type: Physician Type: Progress Notes Filed: 09/05/2023 2:18 PM Note Text: Subjective: Patient is status post a repeat fine-needle aspiration of his left thyroid gland completed in [place]. This came back as atypia noted. The Afirma testing is not done yet. Objective:Blood pressure 132/80, pulse 75, temperature 37.1 ?C (98.7 ?F), SpO2 98 %. Neck is supple no palpable nodules are identified Assessment: Multinodular goiter Plan: We have to wait for the Afirma test to be completed. If this is atypical then I will take him to surgery and perform a left-sided thyroid lobectomy if it is normal then we will just follow-up with repeat ultrasounds. [facility] 09-05-2023 History of Presen t illness Narrative Subjective: Patient is status post a repeat fine-needle aspiration of his left thyroid gland completed in [place]. This came back as atypia noted. The Afirma testing is not done yet. Objective:Blood pressure 132/80, pulse 75, temperature 37.1 C (98.7 F), SpO2 98 %. Neck is supple no palpable nodules are identified Assessment: Multinodular goiter Plan: We have to wait for the Afirma test to be completed. If this is atypical then I will take him to surgery and perform a left-sided thyroid lobectomy if it is normal then we will just follow-up with repeat ultrasounds. documented in this encounter [facility] 08-22-2023 Note HNO ID: [id number] Author: Prudencio Mackenzie MD Service: ? Author Type: Physician Type: Progress Notes Filed: 08/22/2023 12:16 PM Note Text: Patient is status post an ultrasound-guided left thyroid biopsy. This did not have enough cells within it to make it diagnostic. Objective:Blood pressure 130/82, pulse 69, temperature 36.2 ?C (97.2 ?F), height 180.3 cm (5' 11 ), weight 75.3 kg (166 lb), SpO2 98 %. Biopsy site is clean without signs of infection Assessment:Multinodular goiter (primary encounter diagnosis) Plan: We will refer him to interventional radiology for thyroid biopsy. [facility] 07-27-2023 Note HNO ID: [id number] Author: Prudencio Mackenzie MD Service: ? Author Type: Physician Type: Progress Notes Filed: 07/27/2023 11:17 AM Note Text: Preoperative diagnosis: Multinodular goiter Postoperative diagnosis: The same Procedure: Ultrasound-guided fine-needle aspiration of dominant left-sided thyroid nodule Surgeon: Avril Procedure: Ultrasound of the left thyroid revealed the nodule in question. I prepped the skin with alcohol. I injected 1% lidocaine plain. Under ultrasound guidance 3 passes with a 22-gauge needle were performed. These were plated on glass slides. Sterile dressings were applied. The patient tolerated the procedure well. [facility] 07-27-2023 History of Presen t illness Narrative Preoperative diagnosis: Multinodular goiter Postoperative diagnosis: The same Procedure: Ultrasound-guided fine-needle aspiration of dominant left-sided thyroid nodule Surgeon: Avril Procedure: Ultrasound of the left thyroid revealed the nodule in question. I prepped the skin with alcohol. I injected 1% lidocaine plain. Under ultrasound guidance 3 passes with a 22-gauge needle were performed. These were plated on glass slides. Sterile dressings were applied. The patient tolerated the procedure well. documented in this encounter [facility] 07-26-2023 Instructions Karoline Juares LPN - 07/26/2023 11:09 AM EDT Instructions After THYROID FINE NEEDLE ASPIRATION Please do not take aspirin or other blood thinners for the next few days. If you have bleeding from the needle site, hold pressure with a clean gauze. If the bleeding continues, contact our office immediately. I recommend taking Advil or Tylenol for the discomfort. An ice pack may improve your discomfort to the area. Contact our office immediately if you have any questions or concerns @ [phone]. Please make an appointment to follow up in two weeks with your physician and thank you for choosing the [facility] [place] . documented in this encounter [facility] 07-26-2023 Nurse Note UNIVERSAL PROTOCOL / SAFETY CHECKLIST Procedure to be Performed: Ultrasound Guided Fine Needle Aspiration Thyroid left Sign In: A Moment of CARE was completed. Personnel directly involved with the procedure wore the appropriate PPE (Personal Protective Equipment). No special equipment needed. Patient/Surrogate Stated/Verified: PATIENT VERIFIED(optional for EMERGENT procedures): Patient name, Date of , Relevant allergies, and The intended procedure Time Out Communication: Intended patient and procedure match the source documents. Consent documented and matches the intended procedure. Relevant labs, photos, and/or imaging studies have been reviewed. Correct side/site marked and visible. Medications required for procedure verified. No fire risk assessment and interventions applicable. No implant(s) inserted. Sign Out: SIGN OUT (optional for EMERGENT procedures): All specimen containers correctly labeled. No instruments, equipment or retained foreign bodies applicable. Post-procedure follow-up management communicated and Plan of Care Visit completed when applicable. Karoline Juares LPN documented in this encounter [facility] 07-19-2023 Note HNO ID: [id number] Author: Prudencio Mackenzie MD Service: ? Author Type: Physician Type: Progress Notes Filed: 07/19/2023 2:58 PM Note Text: HISTORY AND PHYSICAL Wiliam Sharad Parker 1950 REFERRING PHYSICIAN: Gurvinder Anthony MD CHIEF COMPLAINT: Thyroid US Results and Abdominal Mass HPI: The patient is a 73 year old male with a complaint of a bilateral thyroid nodule. This thyroid nodule was found on Ultrasound by [facility]. The patient denies pain, denies difficulty swallowing, deniesrapid enlargement of the neck, deniesdysphagia, denies a change in the voice, denies hot or cold intolerence. The patient has not a prior history of neck radiation treatment. The patient is being seen by me today at the request of Dr. Gurvinder Anthony MD for my opinion and advice regarding Multinodular goiter (primary encounter diagnosis). PAST MEDICAL HISTORY Diagnosis Date Acute [place] (HCC) CAD (coronary artery disease) Disorder of thyroid Heart attack (HCC) 09/28/2012 Hyperlipidemia Hypertension Kidney disease kidney stones Mass of abdomen lump by naval Snoring Ventricular ectopy PAST SURGICAL HISTORY Procedure Laterality Date COLONOSCOPY FLX DX W/COLLJ SPEC WHEN PFRMD N/A 05/26/2017 Colonoscopy-repeat 5 years LEFT HEART CATH,PERCUTANEOUS 09/28/2012 two stents placed RCA PAST SURGICAL HISTORY OF 10/07/2012 stent x2 after TX, Dr. Willie Li, [facility] PAST SURGICAL HISTORY OF 10/2017 benign brain tumor removal PAST SURGICAL HISTORY OF 2023 prostate reduction Current Outpatient Medications Medication Sig Dispense Refill clopidogrel (PLAVIX) 75 mg tablet Take 1 tablet by mouth once daily. 30 tablet 0 pravastatin (PRAVACHOL) 20 mg tablet Take 20 mg by mouth once daily. carvedilol (COREG) 6.25 mg tablet Take 1 tablet by mouth twice daily. lisinopril (ZESTRIL, PRINIVIL) 20 mg tablet Take 20 mg by mouth once daily. aspirin 81 mg chewable tablet Take 81 mg by mouth once daily. FOLIC ACID/MULTIVIT-MIN/LUTEIN (CENTRUM SILVER ORAL) Take 1 tablet by mouth once daily. No current facility-administered medications for this visit. ALLERGIES: Patient has no known allergies. PERSONAL HISTORY: Social History Tobacco Use Smoking status: Former Types: Cigarettes Quit date: 05/26/2000 Years since quittin.1 Smokeless tobacco: Never Substance Use Topics Alcohol use: Yes Comment: 1 drink per day /5 times per week Drug use: No FAMILY HISTORY: FAMILY HISTORY Problem Relation Age of Onset Coronary Artery Disease Mother Colon Cancer Father Coronary Artery Disease Father other (Heart Disease [Other]) Father Cancer Father Skin REVIEW OF SYMPTOMS: The review of systems data was entered by the nurse and reviewed by me Nursing Notes: Ashlie Henriquez RN 07/19/2023 2:35 PM Signed REVIEW OF SYSTEMS: General: The patient NOTES fatigue, NOTES weight loss, denies weight gain, denies feeling hot, and denies feelings of cold. Eyes: The patient denies glaucoma, denies eye injury/surgery, does not wear glasses or contacts. Ear/Nose/Throat: The patient denies allergies, denies hayfever, denies ear infections, and denies bloody noses. Cardiovascular: The patient denies chest pain, denies heart disease, NOTES high blood pressure,NOTES cardiac stent, NOTES prior heart attack, NOTES irregular heart beat, denies high cholesterol, denies poor circulation, denies heart failure, other cardiac issues, denies claudication, denies cold feet, denies peripheral arterial stent. Respiratory: The patient denies tuberculosis, denies pneumonia, denies frequent cough, denies pulmonary embolism, denies shortness of breath, and denies coughing up blood. Gastrointestinal: The patient denies difficulty swallowing, denies acid reflux, denies ulcers, denies vomiting, denies jaundice/hepatitis, denies gallbladder problems, denies black or tarry stools, denies hemorrhoids, denies bleeding from rectum, denies diverticulitis, denies constipation, denies diarrhea, denies loss of stool control, and NOTES hernias. Kidney/Bladder: The patient denies kidney stones, denies urine infections, and denies bloody urine. Skin: The patient denies a history of skin cancer, denies bleeding/changing moles, and denies a history of skin rash. Neurologic: The patient denies a history of epilepsy/convulsions, denies headaches, denies head/spinal injuries, and denies stroke/TIA. Psychiatric: The patient denies psychiatric medications, denies depression, and denies voices, denies substance abuse. Endocrine: The patient denies thyroid disorders, denies diabetes, and denies hormonal problems. Hematologic: The patient denies a history of bruising, denies bleeding, and denies anemia, denies blood clots. Infections: The patient denies a history of measles and mumps, denies rheumatic fever, and denies sexually transmitted diseases. Musculoskeletal: The patient denies back juliann (more content not included)... [facility] 07-19-2023 History of Presen t illness Narrative HISTORY AND PHYSICAL Wiliam Parker 1950 REFERRING PHYSICIAN: Gurvinder Anthony MD CHIEF COMPLAINT: Thyroid US Results and Abdominal Mass HPI: The patient is a 73 year old male with a complaint of a bilateral thyroid nodule. This thyroid nodule was found on Ultrasound by [facility]. The patient denies pain, denies difficulty swallowing, deniesrapid enlargement of the neck, deniesdysphagia, denies a change in the voice, denies hot or cold intolerence. The patient has not a prior history of neck radiation treatment. The patient is being seen by me today at the request of Dr. Gurvinder Anthony MD for my opinion and advice regarding Multinodular goiter (primary encounter diagnosis). PAST MEDICAL HISTORY Diagnosis Date Acute TX (HCC) CAD (coronary artery disease) Disorder of thyroid Heart attack (HCC) 09/28/2012 Hyperlipidemia Hypertension Kidney disease kidney stones Mass of abdomen lump by naval Snoring Ventricular ectopy PAST SURGICAL HISTORY Procedure Laterality Date COLONOSCOPY FLX DX W/COLLJ SPEC WHEN PFRMD N/A 05/26/2017 Colonoscopy-repeat 5 years LEFT HEART CATH,PERCUTANEOUS 09/28/2012 two stents placed RCA PAST SURGICAL HISTORY OF 10/07/2012 stent x2 after TX, Dr. Willie Li, [facility] PAST SURGICAL HISTORY OF 10/2017 benign brain tumor removal PAST SURGICAL HISTORY OF 2023 prostate reduction Current Outpatient Medications Medication Sig Dispense Refill clopidogrel (PLAVIX) 75 mg tablet Take 1 tablet by mouth once daily. 30 tablet 0 pravastatin (PRAVACHOL) 20 mg tablet Take 20 mg by mouth once daily. carvedilol (COREG) 6.25 mg tablet Take 1 tablet by mouth twice daily. lisinopril (ZESTRIL, PRINIVIL) 20 mg tablet Take 20 mg by mouth once daily. aspirin 81 mg chewable tablet Take 81 mg by mouth once daily. FOLIC ACID/MULTIVIT-MIN/LUTEIN (CENTRUM SILVER ORAL) Take 1 tablet by mouth once daily. No current facility-administered medications for this visit. ALLERGIES: Patient has no known allergies. PERSONAL HISTORY: Social History Tobacco Use Smoking status: Former Types: Cigarettes Quit date: 05/26/2000 Years since quittin.1 Smokeless tobacco: Never Substance Use Topics Alcohol use: Yes Comment: 1 drink per day /5 times per week Drug use: No FAMILY HISTORY: FAMILY HISTORY Problem Relation Age of Onset Coronary Artery Disease Mother Colon Cancer Father Coronary Artery Disease Father other (Heart Disease [Other]) Father Cancer Father Skin REVIEW OF SYMPTOMS: The review of systems data was entered by the nurse and reviewed by me Nursing Notes: Ashlie Henriquez RN 07/19/2023 2:35 PM Signed REVIEW OF SYSTEMS: General: The patient NOTES fatigue, NOTES weight loss, denies weight gain, denies feeling hot, and denies feelings of cold. Eyes: The patient denies glaucoma, denies eye injury/surgery, does not wear glasses or contacts. Ear/Nose/Throat: The patient denies allergies, denies hayfever, denies ear infections, and denies bloody noses. Cardiovascular: The patient denies chest pain, denies heart disease, NOTES high blood pressure,NOTES cardiac stent, NOTES prior heart attack, NOTES irregular heart beat, denies high cholesterol, denies poor circulation, denies heart failure, other cardiac issues, denies claudication, denies cold feet, denies peripheral arterial stent. Respiratory: The patient denies tuberculosis, denies pneumonia, denies frequent cough, denies pulmonary embolism, denies shortness of breath, and denies coughing up blood. Gastrointestinal: The patient denies difficulty swallowing, denies acid reflux, denies ulcers, denies vomiting, denies jaundice/hepatitis, denies gallbladder problems, denies black or tarry stools, denies hemorrhoids, denies bleeding from rectum, denies diverticulitis, denies constipation, denies diarrhea, denies loss of stool control, and NOTES hernias. Kidney/Bladder: The patient denies kidney stones, denies urine infections, and denies bloody urine. Skin: The patient denies a history of skin cancer, denies bleeding/changing moles, and denies a history of skin rash. Neurologic: The patient denies a history of epilepsy/convulsions, denies headaches, denies head/spinal injuries, and denies stroke/TIA. Psychiatric: The patient denies psychiatric medications, denies depression, and denies voices, denies substance abuse. Endocrine: The patient denies thyroid disorders, denies diabetes, and denies hormonal problems. Hematologic: The patient denies a history of bruising, denies bleeding, and denies anemia, denies blood clots. Infections: The patient denies a history of measles and mumps, denies rheumatic fever, and denies sexually transmitted diseases. Musculoskeletal: The patient denies back pain/injury, denies back problems, denies sciatica, denies knee/foot trouble, denies arthritis, or denies gout. When was patient's last Mammogram screening? N/A Last Colonoscopy: 05/13/2017 Ashlie Henriquez RN PHYSICAL EXAMINATION: General: The patient is 73 year old male, well nourished, well hydrated in no acute distress. The patient is oriented to time, place, and person. VITALS: Blood pressure 122/76, pulse 106, temperature 36.4 C (97.6 F), temperature source Temporal, resp. rate 16, height 180.3 cm (5' 11 ), weight 75.4 kg (166 lb 3.2 oz), SpO2 98 %. Body mass index is 23.18 kg/m . HEENT: Normal cephalic, ataumatic, pupils are equally round, sclera are anicteric, mucous membranes are moist, oropharynx is clear. Neck has no masses, asymmetry or lymphadenopathy. Thyroid exam no hard thyroid nodules are identified.. Respiratory: Clear to auscultation and percussion. Normal respiratory excursion and pattern. Cardiac: Examination is regular rate and rhythm. Abdominal exam: Soft, nontender, with no palpable masses. No hepatosplenomegaly. No palpable hernias. Rectal exam: exam deferred Extremities: no clubbing, cyanosis or edema. No adenopathy. Other: LABORATORY VALUES: As Noted RADIOLOGIC STUDIES: As Noted Assessment IMPRESSION: NODULE - left THYROID PLAN: I plan to perform an FNAC of the left Thyroid. Once this is completed and if it is benign he will probably undergo a left thyroid lobectomy secondary to the size of the nodule. Diagnoses: (E04.2) Multinodular goiter (primary encounter diagnosis) A letter was sent to Dr. Gurvinder Anthony MD indicating the above finding for this patient. Return to Clinic: The patient is instructed to follow-up with me 1 week post operatively. Prudencio Mackenzie III, MD documented in this encounter [facility] 07-19-2023 Nurse Note REVIEW OF SYSTEMS: General: The patient NOTES fatigue, NOTES weight loss, denies weight gain, denies feeling hot, and denies feelings of cold. Eyes: The patient denies glaucoma, denies eye injury/surgery, does not wear glasses or contacts. Ear/Nose/Throat: The patient denies allergies, denies hayfever, denies ear infections, and denies bloody noses. Cardiovascular: The patient denies chest pain, denies heart disease, NOTES high blood pressure,NOTES cardiac stent, NOTES prior heart attack, NOTES irregular heart beat, denies high cholesterol, denies poor circulation, denies heart failure, other cardiac issues, denies claudication, denies cold feet, denies peripheral arterial stent. Respiratory: The patient denies tuberculosis, denies pneumonia, denies frequent cough, denies pulmonary embolism, denies shortness of breath, and denies coughing up blood. Gastrointestinal: The patient denies difficulty swallowing, denies acid reflux, denies ulcers, denies vomiting, denies jaundice/hepatitis, denies gallbladder problems, denies black or tarry stools, denies hemorrhoids, denies bleeding from rectum, denies diverticulitis, denies constipation, denies diarrhea, denies loss of stool control, and NOTES hernias. Kidney/Bladder: The patient denies kidney stones, denies urine infections, and denies bloody urine. Skin: The patient denies a history of skin cancer, denies bleeding/changing moles, and denies a history of skin rash. Neurologic: The patient denies a history of epilepsy/convulsions, denies headaches, denies head/spinal injuries, and denies stroke/TIA. Psychiatric: The patient denies psychiatric medications, denies depression, and denies voices, denies substance abuse. Endocrine: The patient denies thyroid disorders, denies diabetes, and denies hormonal problems. Hematologic: The patient denies a history of bruising, denies bleeding, and denies anemia, denies blood clots. Infections: The patient denies a history of measles and mumps, denies rheumatic fever, and denies sexually transmitted diseases. Musculoskeletal: The patient denies back pain/injury, denies back problems, denies sciatica, denies knee/foot trouble, denies arthritis, or denies gout. When was patient's last Mammogram screening? N/A Last Colonoscopy: 05/13/2017 Ashlie Henriquez RN documented in this encounter [facility] Diagnosis Multinodular goiter- Primary Nontoxic multinodular goiter [facility] Diagnosis Multinodular goiter- Primary Nontoxic multinodular goiter [facility] Diagnosis Multinodular goiter- Primary Nontoxic multinodular goiter documented in this encounter [facility] note* Diagnosis Nontoxic multinodular goiter- Primary documented in this encounter [facility] note* Diagnosis Malignant neoplasm of mediastinum (HCC)- Primary Malignant neoplasm of mediastinum, part unspecified Multinodular goiter Nontoxic multinodular goiter Other disorders of arteries, arterioles and capillaries in diseases classified elsewhere (HCC) [facility] [facility] for referral (narrative)* Outpatient Procedure (Routine) - Authorized Specialty Diagnoses / Procedures Referred By Julio César Referred To Contact [facility] Diagnoses Multinodular goiter Other disorders of arteries, arterioles and capillaries in diseases classified elsewhere (HCC) Procedures US CAROTID ARTERIES ALEX VAS LAB DUPLEX SCAN EXTRACRANIAL ART [place] [address] [place] [address] [facility] [address] [id number] Referral ID Status Reason Start Date Expiration Date Visits Requested Visits Authorized [id number] Authorized Auto-Generat ed Referral 10/11/2024 1 1 * MRI/CT (Routine) - Closed Specialty Diagnoses / Procedures Referred By Contac t Referred To Contact CT IMAGING Diagnoses Multinodular goiter Procedures CT NECK SOFT TISSUE WO IVCON CT SOFT TISSUE NECK W/[place] [id number] [id number] Referral ID Status Reason Start Date Expiration Date V isits Requested Visits Authorized [id number] Closed Auto-Generate d Referral 10/12/2023 11/10/2024 1 1 * MRI/CT (Routine) - Closed Specialty Diagnoses / Procedures Referred By Contac t Referred To Contact CT IMAGING Diagnoses Malignant neoplasm of mediastinum (HCC) Procedures CT CHEST WO IVCON DIAGNOSTIC COMPUTED TOMOGRAPHY THORAX [place] [address] [id number] [facility] [place] [address] Referral ID Status Reason Start Date Expiration Date V isits Requested Visits Authorized [id number] Closed Auto-Generate d Referral 10/12/2023 11/10/2024 1 1 [facility] Advance Directives No Advanced Directives Records FoundDocuments on File Type Date Recorded Patient Vessel Ordinary Seaman Expl anation Advance Directive(s) 11/03/2017 9:29 AM Documents on File Type Date Recorded Patient Vessel Ordinary Seaman Expl anation Advance Directive(s) 11/03/2017 9:29 AM Reason for Referral Specialty Diagnoses / Procedures Referred By Contac t Referred To Contact Endocrinology Diagnoses Multinodular goiter Procedures CONSULT TO ENDOCRINOLOGY OFFICE/OUTPATIENT [facility] 60-74 MINUTES Prudencio Mackenzie MD [address] [place] [address] [place] [address] [place] [address] [id number] Referral ID Status Reason Start Date Expiration Date Visits Requested Visits Authorized [id number] Authorized PCP Requested Referral 3 09/11/2024 1 1 Summary Purpose Family History No Family History Records FoundNo Family History Records Found Additional Source Comments Source Comments (unrecognize d section and content) In the event this informatio n is protected by the Federal Confidentiality of Alcohol and Drug Abuse Patient Records regulations: The Federal rules restrict any use of the information to criminally investigate or prosecute any alcohol or drug abuse patient.[facility] the event this information is protected by the Federal Confidentiality of Alcohol and Drug Abuse Patient Records regulations: The Federal rules restrict any use of the information to criminally investigate or prosecute any alcohol or drug abuse patient.[facility] the event this information is protected by the Federal Confidentiality of Alcohol and Drug Abuse Patient Records regulations: The Federal rules restrict any use of the information to criminally investigate or prosecute any alcohol or drug abuse patient.[facility] the event this information is protected by the Federal Confidentiality of Alcohol and Drug Abuse Patient Records regulations: The Federal rules restrict any use of the information to criminally investigate or prosecute any alcohol or drug abuse patient.[facility] the event this information is protected by the Federal Confidentiality of Alcohol and Drug Abuse Patient Records regulations: The Federal rules restrict any use of the information to criminally investigate or prosecute any alcohol or drug abuse patient.[facility] the event this information is protected by the Federal Confidentiality of Alcohol and Drug Abuse Patient Records regulations: The Federal rules restrict any use of the information to criminally investigate or prosecute any alcohol or drug abuse patient.[facility] the event this information is protected by the Federal Confidentiality of Alcohol and Drug Abuse Patient Records regulations: The Federal rules restrict any use of the information to criminally investigate or prosecute any alcohol or drug abuse patient.[facility] Reason for Visit (unrecogniz ed section and content) Reason Comments Consult Ultrasound Guided Fi ne Needle Aspiration Thyroid left Reason Comments Follow Up [facility] 08/29/23 Reason Comments Results Reason Comments Results Genomic sequencing c lassifier Reason Comments Consult FACE SHEET Reason Comments Thyroid Problem Specialty Diagnoses / Procedures Referred By Contac t Referred To Contact Endocrinology Diagnoses Multinodular goiter Procedures CONSULT TO ENDOCRINOLOGY OFFICE/OUTPATIENT [facility] 60-74 MINUTES Prudencio Mackenzie MD [address] [place] [address] [place] [address] [place] [address] Referral ID Status Reason Start Date Expiration Date V isits Requested Visits Authorized [id number] Closed PCP Requested Referral 09/12/2023 09/11/2024 1 1 Care Teams (unrecognized sec tion and content) 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 Relationship Specialty Start Date End Date Gurvinder Anthony MD [address] [place] [address] PCP - General Family Medicine 07/12/16 Gurvinder Anthony MD [address] [place] [address] Referring Family Medicine 09/27/17 Brennan Jackson MD [address] [place] [address] Cardiology 10/05/17 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 Relationship Specialty Start Date End Date Gurvinder Anthony MD [address] [place] [address] PCP - General Family Medicine 07/12/16 Gurvinder Anthony MD [address] [place] [address] Referring Family Medicine 09/27/17 Brennan Jackson MD [address] [place] [address] Cardiology 10/05/17 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 Relationship Specialty Start Date End Date Gurvinder Anthony MD [address] [place] [address] PCP - General Family Medicine 07/12/16 Gurvinder Anthony MD [address] [place] [address] Referring Family Medicine 09/27/17 Brennan Jackson MD [address] [place] [address] Cardiology 10/05/17 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 Relationship Specialty Start Date End Date Gurvinder Anthony MD [address] [place] [id number] PCP - General Family Medicine 07/12/16 Gurvinder Anthony MD [address] [place] [address] Referring Family Medicine 09/27/17 Brennan Jackson MD [address] [place], [place] [id number] Cardiology 10/05/17 (unrecognized sect ion and content) No Status Records FoundNo Status Records Found INFORMATION SOURCE (unrecogn ized section and content) DATE CREATED AUTHOR AUTHOR'S ORGANIZ ATION 10/27/2023 [facility] FOR RECORDS PERTAINING TO PATIENTS WHO ARE [...] BE BASED ON THE PRIMARY CLINICAL RECORDS. [employer] provides no warranty or guarantee of the accuracy or completeness of information in this document.
[2023-12-05 10:37] LABS: PSA,Total- Diagnostic 0.37 ng/mL (0.0-4.0)
== END | disposition home or self-care (01) ==
LOC: LAB 09:18
PROVIDERS: PCP Family Medicine; Referring Provider Urology; Visit Provider Urology
DX: Z48.816 Encounter for surgical aftercare following surgery on the genitourinary system (principal); Z12.5 Encounter for screening for malignant neoplasm of prostate
CPT/HCPCS: 36415; 84153

== ENCOUNTER → 2024-03-07 | Outpatient (CLI) | payer MEDICARE, OTHER, SELFPAY ==
[2024-03-07 12:14] LABS: Absolute Lymphocyte Count 1.96 X10^3/uL (0.83-4.51); Absolute Neutrophil Count 6.5 X10^3/uL (2.0-7.7); Basophil# 0.08 X10^3/uL; Basophil% 0.8 % (0-1); Eosinophil# 0.48 X10^3/uL; Eosinophils% 4.9 % (0-5); Hematocrit 44.8 % (40-54); Hemoglobin 14.3 g/dL (13.0-16.5); Lymphocyte # 1.96 X10^3/ul (0.83-4.51); Lymphocyte % 19.9 % (19-41); Mean Corp Hgb Conc 31.9 g/dL (32-36); Mean Corpuscular Hgb 29.9 pg (27.0-32.0); Mean Corpuscular Volume 93.5 fL (80-94); Mean Platelet Vol. 11.6 fl (6.2-12.0); Monocyte# 0.75 X10^3/uL; Monocyte% 7.6 % (0-10); NRBC Flagged by Analyzer 0 % (0-5); Neutrophil # 6.52 X10^3/uL (2.7-7.7); Neutrophil % 66.4 % (47-70); Platelet Count 469 K/mm3 (150-450); RBC Distribution Width CV 14.5 % (11.6-14.6); RBC Distribution Width SD 49.8 fl (35.1-43.9); Red Blood Count 4.79 M/mm3 (4.6-6.2); White Blood Count 9.8 K/mm3 (4.4-11.0)
[2024-03-07 12:59] LABS: ALB/GLOB Ratio 1.2 RATIO (0.9-2.4); AST(SGOT) 23 U/L (15-37); Alanine Aminotransfer ALT/SGPT 21 U/L (16-61); Albumin, Serum 4.1 g/dL (3.2-5.0); Alkaline Phosphatase 56 U/L (45-117); Anion Gap 5 (5-15); BUN 20 mg/dL (7-18); BUN/Creat Ratio 13.6 RATIO (10-20); Calcium,Total 8.9 mg/dL (8.5-10.1); Chloride 103 mmol/L (98-107); Cholesterol 160 mg/dL (200); Creatinine, Serum 1.47 mg/dL (0.70-1.30); EST Glomerular Filtration Rate 50 mL/min (>60); Est Glom Filt Rate - Afr Amer 60 mL/min (>60); Globulin 3.5 g/dL (2.2-4.2); Glucose 100 mg/dL (74-106); High Density Lipoprotein 60 mg/dL; Potassium 4.6 mmol/L (3.5-5.1); Protein, Total 7.6 g/dL (6.4-8.2); Sodium Level 136 mmol/L (136-145); Thyroid Stim Hormone (TSH) 7.14 uIU/mL (0.358-3.74); Triglycerides 93 mg/dL; Very Low Density Lipoprotein 19 mg/dL (5-40)
== END | disposition home or self-care (01) ==
LOC: MFPLAB 10:28
PROVIDERS: PCP Family Medicine; Visit Provider Family Medicine
DX: D64.9 Anemia, unspecified (principal); E89.0 Postprocedural hypothyroidism; Z13.220 Encounter for screening for lipoid disorders
CPT/HCPCS: 36415; 80053; 80061; 84439; 84443; 85025

== ENCOUNTER → 2024-07-02 | Outpatient (CLI) | payer MEDICARE, OTHER, SELFPAY ==
[2024-07-02 12:48] LABS: ALB/GLOB Ratio 0.9 RATIO (0.9-2.4); AST(SGOT) 25 U/L (15-37); Alanine Aminotransfer ALT/SGPT 26 U/L (16-61); Albumin, Serum 3.6 g/dL (3.2-5.0); Alkaline Phosphatase 71 U/L (45-117); Anion Gap 7 (5-15); BUN 19 mg/dL (7-18); BUN/Creat Ratio 13.5 RATIO (10-20); Calcium,Total 8.6 mg/dL (8.5-10.1); Chloride 104 mmol/L (98-107); Creatinine, Serum 1.41 mg/dL (0.70-1.30); EST Glomerular Filtration Rate 52 mL/min (>60); Est Glom Filt Rate - Afr Amer 63 mL/min (>60); Glucose 97 mg/dL (74-106); Potassium 4.7 mmol/L (3.5-5.1); Protein, Total 7.6 g/dL (6.4-8.2); Sodium Level 138 mmol/L (136-145); T4 Free Direct 1.53 ng/dL (0.76-1.46); Thyroid Stim Hormone (TSH) 0.44 uIU/mL (0.358-3.74)
== END | disposition home or self-care (01) ==
PROVIDERS: PCP Family Medicine; Referring Provider Family Medicine; Visit Provider Family Medicine
DX: I10 Essential (primary) hypertension (principal); C73 Malignant neoplasm of thyroid gland
CPT/HCPCS: 36415; 80053; 84439; 84443

== ENCOUNTER → 2024-08-29 | Outpatient (CLI) | payer MEDICARE, OTHER, SELFPAY ==
[2024-08-29 12:16] LABS: AST(SGOT) 21 U/L (15-37); Alanine Aminotransfer ALT/SGPT 14 U/L (16-61); Albumin, Serum 3.8 g/dL (3.2-5.0); Alkaline Phosphatase 74 U/L (45-117); Bilirubin, Direct 0.31 mg/dL (0.00-0.30); Cholesterol 129 mg/dL (200); High Density Lipoprotein 52 mg/dL; Protein, Total 7.8 g/dL (6.4-8.2); Triglycerides 65 mg/dL; Very Low Density Lipoprotein 13 mg/dL (5-40)
== END | disposition home or self-care (01) ==
LOC: MTLAB 10:38
PROVIDERS: PCP Family Medicine; Referring Provider Internal Medicine Cardiovascular Disease; Visit Provider Internal Medicine Cardiovascular Disease
DX: E78.00 Pure hypercholesterolemia, unspecified (principal)
CPT/HCPCS: 36415; 80061; 80076

== ENCOUNTER → 2024-12-11 | Outpatient (CLI) | payer MEDICARE, OTHER, SELFPAY ==
[2024-12-11 13:07] LABS: PSA,Total - Annual Screen 0.42 ng/mL (0.00-4.00)
== END | disposition home or self-care (01) ==
PROVIDERS: PCP Family Medicine; Visit Provider Urology
DX: Z12.5 Encounter for screening for malignant neoplasm of prostate (principal)

== ENCOUNTER 2024-12-21 09:43 | Outpatient (CLI) | payer MEDICARE, OTHER, SELFPAY ==
[2024-12-21 10:43] LABS: Hematocrit 44.8 % (40-54); Hemoglobin 14.1 g/dL (13.0-16.5); Mean Corp Hgb Conc 31.5 g/dL (32-36); Mean Corpuscular Hgb 28.1 pg (27.0-32.0); Mean Corpuscular Volume 89.4 fL (80-94); Mean Platelet Vol. 10.9 fl (6.2-12.0); Platelet Count 555 K/mm3 (150-450); RBC Distribution Width CV 14.7 % (11.6-14.6); RBC Distribution Width SD 47.9 fl (35.1-43.9); Red Blood Count 5.01 M/mm3 (4.6-6.2); White Blood Count 11.1 K/mm3 (4.4-11.0)
[2024-12-21 10:54] LABS: Erythrocyte Sedimentation Rate 14 mm/hr (0-20)
[2024-12-21 11:56] LABS: AST(SGOT) 16 U/L (15-37); Alanine Aminotransfer ALT/SGPT 23 U/L (16-61); Albumin, Serum 4.1 g/dL (3.2-5.0); Alkaline Phosphatase 69 U/L (45-117); Anion Gap 5 (5-15); BUN 24 mg/dL (7-18); BUN/Creat Ratio 16.4 RATIO (10-20); CRP < 2.90 mg/L (0.0-3.0); Calcium,Total 9.3 mg/dL (8.5-10.1); Chloride 106 mmol/L (98-107); Creatinine, Serum 1.46 mg/dL (0.70-1.30); EST Glomerular Filtration Rate 50 mL/min (>60); Est Glom Filt Rate - Afr Amer 61 mL/min (>60); Globulin 4.1 g/dL (2.2-4.2); Glucose 96 mg/dL (74-106); Potassium 4.4 mmol/L (3.5-5.1); Protein, Total 8.2 g/dL (6.4-8.2); Rheumatoid Factor < 10.0 IU/mL (<15); Sodium Level 137 mmol/L (136-145)
[2024-12-24 16:08] LABS: ANTINUCLEAR ANTIBODIES DIRECT Negative (Negative)
== END 2024-12-21 23:59 | disposition home or self-care (01) ==
LOC: MFPLAB 09:43
PROVIDERS: PCP Family Medicine; Referring Provider Family Medicine; Visit Provider Family Medicine
DX: M19.019 Primary osteoarthritis, unspecified shoulder (principal); I25.10 Atherosclerotic heart disease of native coronary artery without angina pectoris
CPT/HCPCS: 36415; 80053; 85027; 85652; 86038; 86140; 86431

== ENCOUNTER → 2025-10-15 | Outpatient (CLI) | payer MEDICARE, OTHER, SELFPAY ==
[2025-10-15 17:42] LABS: Hematocrit 46.4 % (40-54); Hemoglobin 15.1 g/dL (13.0-16.5); Immature Granulocytes Count 0.030 X10^3/uL (0.0-0.0); Mean Corp Hgb Conc 32.5 g/dL (32-36); Mean Corpuscular Volume 88.2 fL (80-94); Mean Platelet Vol. 10.9 fl (6.2-12.0); NRBC Flagged by Analyzer 0 % (0-5); Platelet Count 602 K/mm3 (150-450); RBC Distribution Width CV 14.2 % (11.6-14.6); RBC Distribution Width SD 45.6 fl (35.1-43.9); Red Blood Count 5.26 M/mm3 (4.6-6.2); White Blood Count 11.7 K/mm3 (4.4-11.0)
[2025-10-15 18:31] LABS: Creatinine, Urine (random) 106.00 mg/dL (39.00-259.00); Microalbumin,Random Urine 46.8 mg/L (<20 mg/L)
[2025-10-15 18:48] LABS: AST(SGOT) 32 U/L (<=37); Alanine Aminotransfer ALT/SGPT 15 U/L (<=46); Albumin, Serum 4.7 g/dL (3.4-4.8); Alkaline Phosphatase 69 U/L (40-129); Anion Gap 15 (5-15); BUN 17 mg/dL (4-19); BUN/Creat Ratio 13.1 RATIO (10-20); Calcium,Total 9.0 mg/dL (7.6-11.0); Carbon Dioxide 21.1 mmol/L (21.0-32.0); Chloride 102 mmol/L (98-108); Cholesterol 139 mg/dL (<=200); Globulin 3.0 g/dL (2.2-4.2); Glucose 88 mg/dL (70-99); Low Density Lipoprotein Calc. 69 mg/dL; PSA,Total- Diagnostic 0.41 ng/mL (0.00-4.00); Potassium 4.3 mmol/L (3.3-5.1); Triglycerides 81 mg/dL; Very Low Density Lipoprotein 16 mg/dL (5-40); cholesterol:hdl ratio screen 2.54
== END | disposition home or self-care (01) ==
LOC: MTLAB 16:50
PROVIDERS: PCP Family Medicine; Referring Provider Family Medicine; Visit Provider Family Medicine
DX: N18.31 Chronic kidney disease, stage 3a (principal); Z90.79 Acquired absence of other genital organ(s); I25.10 Atherosclerotic heart disease of native coronary artery without angina pectoris
CPT/HCPCS: 36415; 80053; 80061; 82043; 82570; 84153; 85025